=== PATIENT | male | born 1980 | race Two or more races ===

== ENCOUNTER 2016-05-18 21:37 | Inpatient (IN) | payer OTHER ==
[~2016-05-18] VITALS: Ht 167.6 cm; Wt 99.4 kg
[~2016-05-18 21:37] MED LIST: GLIP-115 PO
[2016-05-18 22:34] LABS: Basophils # (auto) 0 uL; Basophils % (auto) 0.2 % (0.0-2.0); Eosinophils # (auto) 0 uL; Eosinophils % (auto) 0.1 % (0.0-7.0); Hematocrit 39.4 % (41.0-53.0); Hemoglobin 12.7 g/dL (13.5-17.5); Lymphocytes # (auto) 1.5 uL; Lymphocytes % (auto) 18.7 % (10.0-50.0); Mean Corpuscular Hemoglobin 28.5 pg (28.0-32.0); Mean Corpuscular Hgb Conc. 32.3 g/dL (32.0-36.0); Mean Corpuscular Volume 88.3 fL (80.0-100.0); Mean Platelet Volume 7.5 fL (7.4-10.4); Monocytes # (auto) 0.4 uL; Monocytes % (auto) 5.1 % (0.0-12.0); Neutrophils # (auto) 6.1 uL; Neutrophils % (auto) 75.9 % (37.0-80.0); Platelet Count (auto) 334 10^3/uL (140-450); Red Cell Distribution Width 14.1 % (11.6-16.0); White Blood Cell 8.1 10^3/uL (4.4-10.8)
[2016-05-18 22:51] LABS: INR 0.98 (0.9-1.15); Partial Thromboplastin Time 22.5 sec (22.64-33.71); Prothrombin Time 10.1 sec (9.37-12.3)
[2016-05-18 22:54] LABS: Albumin 3.1 g/dL (3.4-5.0); Calcium 7.9 mg/dL (8.5-10.1); Potassium 4.5 mmol/L (3.5-5.1)
[2016-05-18 22:56] LABS: Urine Bilirubin Negative (Negative); Urine Blood Negative /uL (Negative); Urine Color Colorless (Yellow); Urine Ketone Negative (Negative); Urine Nitrite Negative (Negative); Urine RBC <1 /hpf (0 - 3); Urine Squamous Epithelial Cell FEW /hpf (<5); Urine Urobilinogen Normal (Negative); Urine pH 6.5 (5.0-8.0)
[2016-05-18 22:57] LABS: BUN/Creatinine Ratio 16.9; Bilirubin, Total 0.2 mg/dL (0.2-1.0); Total Protein 8.1 g/dL (6.4-8.2)
[2016-05-18] MEDS ORDERED: InsuLIN R (HUMAN) 100 UNITS in SODIUM CHL 0.9% 99 ML IV SCH (22:59)
[2016-05-18] MEDS ORDERED: SODIUM CHLORIDE 0.9% 1,000 ML IV ONE (23:00)
[2016-05-18] MEDS ORDERED: LEVOFLOXACIN 750MG 150 ML IV ONE (23:00)
[2016-05-18] MEDS ORDERED: DEXTROSE (50%) 50ML SYRG IV PRN (23:00)
[2016-05-18 23:02] LABS: Urine Glucose 4+ mg/dL (Normal)
[2016-05-18] MEDS ORDERED: SOD CHL 0.9%/ KCL 20MEQ 1,000 ML IV ONE (23:06)
[2016-05-18 23:36] LABS: Magnesium 2.4 mg/dL (1.6-2.6); Phosphorus 3.4 mg/dL (2.6-4.90)
[2016-05-18] MEDS: SOD CHL 0.9%/ KCL 20MEQ 1,000 ML IV SCH (23:36)
[2016-05-18] MEDS: SODIUM CHLORIDE 0.9% 1,000 ML IV SCH (23:44)
[2016-05-18] MEDS: ACCU-CHEK COMFORT CURVE STRIP VI SCH (23:50)
[2016-05-19] MEDS: ACCU-CHEK COMFORT CURVE STRIP VI SCH ×12 (01:07→11:59)
[2016-05-19] MEDS ORDERED: SODIUM CHLORIDE 0.9% 1,000 ML IV SCH (02:59)
[2016-05-19] MEDS ORDERED: HYDROcodone-ACET 5/325MG TAB PO PRN (05:15)
[2016-05-19] MEDS ORDERED: TEMAZEPAM 15 MG CAP PO PRN (05:15)
[2016-05-19] MEDS ORDERED: NITROGLYCERIN 0.4 MG SL TAB SL PRN (05:15)
[2016-05-19] MEDS ORDERED: MORPHINE SULF INJ 2 MG/ML SYRINGE 1ML IV PRN (05:15)
[2016-05-19] MEDS ORDERED: ONDANSETRON HCL 4 MG/2 ML VIAL IV PRN (05:15)
[2016-05-19] MEDS ORDERED: ACETAMINOPHEN 325 MG TAB PO PRN (05:15)
[2016-05-19 06:30] VITALS: BP 137/98
[2016-05-19 06:30] LABS: Calcium 7.3 mg/dL (8.5-10.1); Potassium 4.3 mmol/L (3.5-5.1)
[2016-05-19] MEDS: SOD CHL 0.9%/ KCL 20MEQ 1,000 ML IV SCH ×2 (06:48→12:19)
[2016-05-19] MEDS: SODIUM CHLORIDE 0.9% 1,000 ML IV SCH ×3 (06:56→11:42)
[2016-05-19 07:08] LABS: BUN/Creatinine Ratio 20.5
[2016-05-19 08:00] VITALS: BP 143/84
[2016-05-19] MEDS ORDERED: FLUCONAZOLE 100 MG TAB PO SCH (10:00)
[2016-05-19] MEDS ORDERED: TRIUMEQ PO SCH (10:00)
[2016-05-19] MEDS ORDERED: PREZCOBIX PO SCH ×2 (10:00)
[2016-05-19] MEDS ORDERED: LEVETIRACETAM 500 MG TAB PO SCH (10:00)
[2016-05-19] MEDS ORDERED: predniSONE 20 MG TAB PO SCH (10:00)
[2016-05-19] MEDS ORDERED: FAMOTIDINE 20 MG TAB PO SCH (10:00)
[2016-05-19] MEDS ORDERED: SULFAMETHOX W/TRIMETH(800/160MG) DS TAB PO SCH (10:00)
[2016-05-19] MEDS ORDERED: DEXTROSE (50%) 50ML SYRG IV PRN (11:15)
[2016-05-19 11:18] LABS: BUN/Creatinine Ratio 20.6
[2016-05-19] MEDS ORDERED: InsuLIN REG 1unit/0.01ml Soln (100units/ml) SC SCH ×2 (11:30→22:00)
[2016-05-19] MEDS ORDERED: ACCU-CHEK COMFORT CURVE STRIP VI SCH (11:30)
[2016-05-19 12:00] VITALS: BP 146/86
[2016-05-19] MEDS ORDERED: InsuLIN REG 1unit/0.01ml Soln (100units/ml) SC ONE (12:45)
== END 2016-05-19 13:25 | disposition left against medical advice (07) | DRG 637 ==
LOC: ER 21:37 → EDBD 21:37 → TELE 21:38 → DOU IN ICU 05-19 06:20
PROVIDERS: ADMIT Nurse Practitioner; ATTEND Family Medicine
DX: E10.10 Type 1 diabetes mellitus with ketoacidosis without coma (principal); N17.0 Acute kidney failure with tubular necrosis; E87.1 Hypo-osmolality and hyponatremia; J44.0 Chronic obstructive pulmonary disease with (acute) lower respiratory infection; E86.0 Dehydration; J45.909 Unspecified asthma, uncomplicated; R63.4 Abnormal weight loss; J20.9 Acute bronchitis, unspecified; Z82.49 Family history of ischemic heart disease and other diseases of the circulatory system; Z83.3 Family history of diabetes mellitus; Z86.73 Personal history of transient ischemic attack (TIA), and cerebral infarction without residual deficits; Z90.49 Acquired absence of other specified parts of digestive tract; Z98.890 Other specified postprocedural states; Z83.79 Family history of other diseases of the digestive system; Z83.2 Family history of diseases of the blood and blood-forming organs and certain disorders involving the immune mechanism; Z80.9 Family history of malignant neoplasm, unspecified; Z68.35 Body mass index [BMI] 35.0-35.9, adult
CPT/HCPCS: 36415; 36600; 71010; 80048; 80053; 81001; 82010; 82805; 82962; 83690; 83735; 83930; 84100; 85025; 85049; 85610; 85730; 87040; 87081; 94761; 96365; 96366; 96368; J1815; J1956

== ENCOUNTER 2017-01-13 16:37 | Emergency (ER) | payer OTHER ==
[~2017-01-13] VITALS: Ht 167.6 cm; Wt 113.4 kg
[2017-01-13 17:10] LABS: Basophils # (auto) 0 uL; Basophils % (auto) 0.9 % (0.0-2.0); Eosinophils # (auto) 0.1 uL; Eosinophils % (auto) 2.3 % (0.0-7.0); Hematocrit 45.1 % (41.0-53.0); Hemoglobin 15.3 g/dL (13.5-17.5); Lymphocytes # (auto) 1.7 uL; Lymphocytes % (auto) 42.3 % (10.0-50.0); Mean Corpuscular Hemoglobin 28.2 pg (28.0-32.0); Mean Corpuscular Hgb Conc. 33.8 g/dL (32.0-36.0); Mean Corpuscular Volume 83.2 fL (80.0-100.0); Mean Platelet Volume 7.6 fL (6.9-10.8); Monocytes # (auto) 0.6 uL; Monocytes % (auto) 16.3 % (0.0-12.0); Neutrophils # (auto) 1.5 uL; Neutrophils % (auto) 38.2 % (37.0-80.0); Nucleated Red Blood Cells % 0.4 %; Platelet Count (auto) 148 10^3/uL (140-450); Red Cell Distribution Width 13.3 % (11.8-14.3); White Blood Cell 3.9 10^3/uL (4.4-10.8)
[2017-01-13 17:30] LABS: Albumin 3.7 g/dL (3.4-5.0); Alkaline Phosphatase 117 U/L (45-117); Amylase 28 U/L (25-115); Anion Gap 12 (5-15); Aspartate Aminotransferase 40 U/L (15-37); BUN/Creatinine Ratio 12.3; Bilirubin, Total 0.6 mg/dL (0.2-1.0); Blood Urea Nitrogen 13 mg/dL (7-18); Calcium 8.2 mg/dL (8.5-10.1); Carbon Dioxide 21 mmol/L (21-32); Chloride 97 mmol/L (98-107); GFR African American 102 mL/min; GFR Non-African American 84 mL/min; Glucose 309 mg/dL (74-106); Magnesium 2.3 mg/dL (1.6-2.6); Potassium 4.1 mmol/L (3.5-5.1); Sodium 130 mmol/L (136-145); Total Protein 9.1 g/dL (6.4-8.2)
[2017-01-13 17:42] LABS: Urine Blood Negative /uL (Negative); Urine Color Yellow (Yellow); Urine Glucose 4+ mg/dL (Normal); Urine Hyaline Cast FEW /lpf (0 - 2); Urine Ketone 3+ (Negative); Urine Mucus FEW (None Seen); Urine Nitrite Negative (Negative); Urine RBC 1 /hpf (0 - 3); Urine Squamous Epithelial Cell FEW /hpf (<5)
[2017-01-13 18:49] LABS: Urine Bilirubin NEGATIVE (Negative)
[2017-01-13] MEDS ORDERED: SODIUM CHLORIDE 0.9% 1,000 ML IV ONE (19:30)
[2017-01-13] MEDS ORDERED: InsuLIN REG 1unit/0.01ml Soln (100units/ml) IV ONE (19:30)
[2017-01-13] MEDS ORDERED: MORPHINE SULF INJ 2 MG/ML SYRINGE 1ML IV ONE (20:30)
[2017-01-13 21:30] VITALS: BP 124/67
[2017-01-13] MEDS ORDERED: InsuLIN REG 1unit/0.01ml Soln (100units/ml) SC ONE ×2 (22:00→22:15)
[2017-01-13] MEDS ORDERED: METOCLOPRAMIDE HCL 10 MG TAB PO PRN (22:00)
[2017-01-13] MEDS ORDERED: InsuLIN REG 1unit/0.01ml Soln (100units/ml) ONE (22:15)
== END 2017-01-13 23:09 | disposition home or self-care (01) ==
LOC: ER 16:39
DX: E11.43 Type 2 diabetes mellitus with diabetic autonomic (poly)neuropathy (principal); K31.84 Gastroparesis; E11.65 Type 2 diabetes mellitus with hyperglycemia; J44.9 Chronic obstructive pulmonary disease, unspecified; Z86.73 Personal history of transient ischemic attack (TIA), and cerebral infarction without residual deficits; Z90.49 Acquired absence of other specified parts of digestive tract; Z79.899 Other long term (current) drug therapy
CPT/HCPCS: 36415; 71020; 80053; 81001; 82150; 82962; 83036; 83735; 84484; 85025; 93005; 96361; 96372; 96374; 96375; 99285; J1815; J2270

== ENCOUNTER 2017-04-10 09:56 | Emergency (ER) | payer OTHER ==
[~2017-04-10] VITALS: Ht 167.6 cm; Wt 108.9 kg
[2017-04-10 10:37] VITALS: BP 137/86
== END 2017-04-10 13:55 | disposition left against medical advice (07) ==
LOC: ER 09:56
DX: R05 Cough (principal); N50.819 Testicular pain, unspecified; Z53.21 Procedure and treatment not carried out due to patient leaving prior to being seen by health care provider

== ENCOUNTER 2017-08-06 11:49 | Emergency (ER) | payer OTHER ==
[~2017-08-06] VITALS: Ht 170.2 cm; Wt 113.4 kg
[2017-08-06 12:02] VITALS: BP 163/113
== END 2017-08-06 15:13 | disposition left against medical advice (07) ==
LOC: EDUNIT# 11:49 → EDBD 11:49 → ER 11:53
DX: E11.65 Type 2 diabetes mellitus with hyperglycemia (principal); J45.909 Unspecified asthma, uncomplicated; I10 Essential (primary) hypertension; Z86.73 Personal history of transient ischemic attack (TIA), and cerebral infarction without residual deficits; Z21 Asymptomatic human immunodeficiency virus [HIV] infection status
CPT/HCPCS: 93005

== ENCOUNTER 2017-10-17 10:30 | Emergency (ER) | payer OTHER ==
[~2017-10-17] VITALS: Ht 177.8 cm; Wt 95.3 kg
[2017-10-17 10:35] VITALS: BP 128/96
[2017-10-17] MEDS ORDERED: SODIUM CHLORIDE 0.9% 1,000 ML IV ONE ×2 (10:40)
[2017-10-17] MEDS ORDERED: InsuLIN REG 1unit/0.01ml Soln (100units/ml) IV ONE (10:45)
== END 2017-10-17 17:38 | disposition home or self-care (01) ==
LOC: EDBD 10:30 → ER 10:30
DX: E11.69 Type 2 diabetes mellitus with other specified complication (principal); I10 Essential (primary) hypertension; Z86.73 Personal history of transient ischemic attack (TIA), and cerebral infarction without residual deficits

== ENCOUNTER 2017-12-16 23:22 | Inpatient (IN) | payer OTHER ==
[~2017-12-16] VITALS: Ht 167.6 cm; Wt 112.6 kg
[2017-12-17] MEDS ORDERED: ACETAMINOPHEN 325 MG TAB PO ONE
[2017-12-17] MEDS ORDERED: ONDANSETRON HCL 4 MG/2 ML VIAL IV ONE (00:30)
[2017-12-17] MEDS ORDERED: PANTOPRAZOLE 40 MG/10 ML VIAL IV ONE (00:30)
[2017-12-17] MEDS ORDERED: ALUM & MAG HYDROX-SIMETH LIQ(MAALOX) 30 ML PO ONE (00:30)
[2017-12-17] MEDS ORDERED: KETOROLAC TROMETH 30 MG/ML 1ML VIAL IV ONE (00:30)
[2017-12-17 00:36] LABS: Basophils # (auto) 0 uL; Basophils % (auto) 0.5 % (0.0-2.0); Eosinophils # (auto) 0 uL; Eosinophils % (auto) 0.2 % (0.0-7.0); Hematocrit 39.7 % (41.0-53.0); Hemoglobin 13.4 g/dL (13.5-17.5); Lymphocytes # (auto) 0.9 uL; Mean Corpuscular Hemoglobin 28.7 pg (28.0-32.0); Mean Corpuscular Hgb Conc. 33.8 g/dL (32.0-36.0); Mean Corpuscular Volume 84.9 fL (80.0-100.0); Monocytes # (auto) 0.4 uL; Monocytes % (auto) 4.3 % (0.0-12.0); Neutrophils # (auto) 7.1 uL; Nucleated Red Blood Cells % 0.1 %; Platelet Count (auto) 219 10^3/uL (140-450); Red Blood Cells 4.67 10^6/uL (4.5-5.90); Red Cell Distribution Width 14.3 % (11.8-14.3); White Blood Cell 8.5 10^3/uL (4.4-10.8)
[2017-12-17 00:51] LABS: Albumin 2.8 g/dL (3.4-5.0); Amylase 79 U/L (25-115); Anion Gap 15 (5-15); Blood Urea Nitrogen 32 mg/dL (7-18); Calcium 7.8 mg/dL (8.5-10.1); Carbon Dioxide 18 mmol/L (21-32); Chloride 90 mmol/L (98-107); Lipase 305 U/L (73-393); Potassium 4.6 mmol/L (3.5-5.1); Sodium 123 mmol/L (136-145)
[2017-12-17 00:55] LABS: Alanine Aminotransferase 38 U/L (16-61); Aspartate Aminotransferase 45 U/L (15-37); BUN/Creatinine Ratio 14.5; Bilirubin, Total 0.4 mg/dL (0.2-1.0); GFR African American 44 mL/min; GFR Non-African American 36 mL/min; Total Protein 8.7 g/dL (6.4-8.2)
[2017-12-17 00:57] LABS: Glucose 560 mg/dL (74-106)
[2017-12-17 00:59] LABS: Alkaline Phosphatase 81 U/L (45-117)
[2017-12-17] MEDS ORDERED: IOHEXOL 350 MG/ML 100ML IJ ONE (01:06)
[2017-12-17] MEDS ORDERED: InsuLIN REG 1unit/0.01ml Soln (100units/ml) IV ONE ×3 (02:00→04:30)
[2017-12-17] MEDS ORDERED: SODIUM CHLORIDE 0.9% 1,000 ML IV ONE ×2 (02:00→05:30)
[2017-12-17] MEDS ORDERED: DEXTROSE (50%) 50ML SYRG IV PRN (05:30)
[2017-12-17] MEDS ORDERED: NITROGLYCERIN 0.4 MG SL TAB SL PRN (05:30)
[2017-12-17] MEDS ORDERED: MORPHINE SULF INJ 2 MG/ML SYRINGE 1ML IV PRN (05:30)
[2017-12-17] MEDS ORDERED: HYDROcodone-ACET 5/325MG TAB PO PRN (05:30)
[2017-12-17] MEDS ORDERED: ONDANSETRON HCL 4 MG/2 ML VIAL IV PRN (05:30)
[2017-12-17] MEDS ORDERED: TEMAZEPAM 15 MG CAP PO PRN (05:30)
[2017-12-17] MEDS ORDERED: ACETAMINOPHEN 325 MG TAB PO PRN (05:30)
[2017-12-17] MEDS: SODIUM CHLORIDE 0.9% 1,000 ML IV SCH ×2 (06:33→15:34)
[2017-12-17] MEDS ORDERED: cefTRIAXone 1GM/10ml IVPUSH 10 ML IV ONE (07:00)
[2017-12-17] MEDS: InsuLIN REG 1unit/0.01ml Soln (100units/ml) SC SCH ×4 (08:00→20:19)
[2017-12-17] MEDS: ACCU-CHEK COMFORT CURVE STRIP VI SCH ×4 (08:12→20:28)
[2017-12-17] MEDS: SULFAMETH-TRIMETH 80/16MG-ML 15 ML in D5W 5% 500 ML IV SCH ×2 (08:55→17:24)
[2017-12-17] MEDS ORDERED: PANTOPRAZOLE 40 MG/10 ML VIAL IV SCH (10:00)
[2017-12-17] MEDS ORDERED: ENOXAPARIN SOD 40 MG/0.4 ML SYRINGE SC SCH (10:00)
[2017-12-17] MEDS ORDERED: LEVOFLOXACIN 500MG 100 ML IV SCH (10:00)
[2017-12-17 12:47] LABS: Urine Bacteria NONE SEEN /hpf (None Seen); Urine Blood 1+ /uL (Negative); Urine WBC 6 /hpf (0 - 3)
[2017-12-17 17:00] VITALS: BP 104/60
[2017-12-17 22:00] VITALS: BP 105/71
[2017-12-17] MEDS ORDERED: INSULIN LANTUS (GLARGINE) 1 /0.01ml (100units/ml) SC SCH (22:00)
[2017-12-18] MEDS: ACCU-CHEK COMFORT CURVE STRIP VI SCH ×2 (00:12→04:00)
[2017-12-18] MEDS: InsuLIN REG 1unit/0.01ml Soln (100units/ml) SC SCH ×2 (00:12→04:00)
[2017-12-18] MEDS: SULFAMETH-TRIMETH 80/16MG-ML 15 ML in D5W 5% 500 ML IV SCH (00:27)
[2017-12-18] MEDS: SODIUM CHLORIDE 0.9% 1,000 ML IV SCH (01:30)
[2017-12-18 05:00] VITALS: BP 100/25
[2017-12-18 06:13] LABS: Albumin 2.2 g/dL (3.4-5.0); BUN/Creatinine Ratio 22.2; Bilirubin, Total 0.2 mg/dL (0.2-1.0); Calcium 7.4 mg/dL (8.5-10.1); Potassium 3.8 mmol/L (3.5-5.1); Total Protein 7.8 g/dL (6.4-8.2)
[2017-12-18 08:00] VITALS: BP 118/70
[2017-12-18] MEDS ORDERED: cefTRIAXone 1GM/10ml IVPUSH 10 ML IV SCH (09:00)
== END 2017-12-18 08:00 | disposition left against medical advice (07) | DRG 682 ==
LOC: EDBD 23:22 → ER 23:22 → TELE 23:23 → TELE-WESTW 12-17 16:36
PROVIDERS: ADMIT Nurse Practitioner; ATTEND Nurse Practitioner
DX: N17.0 Acute kidney failure with tubular necrosis (principal); J18.9 Pneumonia, unspecified organism; E11.22 Type 2 diabetes mellitus with diabetic chronic kidney disease; N18.3 Chronic kidney disease, stage 3 (moderate); E86.0 Dehydration; G47.30 Sleep apnea, unspecified; I12.9 Hypertensive chronic kidney disease with stage 1 through stage 4 chronic kidney disease, or unspecified chronic kidney disease; J45.909 Unspecified asthma, uncomplicated; K40.20 Bilateral inguinal hernia, without obstruction or gangrene, not specified as recurrent; Z82.0 Family history of epilepsy and other diseases of the nervous system; Z82.49 Family history of ischemic heart disease and other diseases of the circulatory system; Z83.3 Family history of diabetes mellitus; Z86.73 Personal history of transient ischemic attack (TIA), and cerebral infarction without residual deficits
CPT/HCPCS: 36415; 36600; 71045; 74177; 80053; 81001; 82010; 82150; 82805; 82962; 83036; 83605; 83690; 84484; 85025; 87040; 93005; 96361; 96372; 96374; 96375; 96376; 99291; C9113; J0696; J1815; J1885; J1956; J2405; J3490

== ENCOUNTER 2019-04-27 16:56 | Emergency (ER) | payer OTHER ==
[~2019-04-27] VITALS: Ht 167.6 cm; Wt 127.0 kg
[~2019-04-27 16:56] MED LIST changes: -GLIP-115 PO; +GLIP5TAB12 PO
[2019-04-27 17:21] VITALS: BP 144/99
[2019-04-27] MEDS ORDERED: TETRACAINE HCL 0.5% OPTH(EYE) SOLN 4ML EACHEYE ONE (18:00)
[2019-04-27] MEDS ORDERED: FLUORESCEIN SOD 1 MG TEST STRIP OP ONE (18:00)
== END 2019-04-27 18:12 | disposition home or self-care (01) ==
LOC: ER 16:56
DX: S05.01XA Injury of conjunctiva and corneal abrasion without foreign body, right eye, initial encounter (principal); E11.9 Type 2 diabetes mellitus without complications; I10 Essential (primary) hypertension; J45.909 Unspecified asthma, uncomplicated; Z86.73 Personal history of transient ischemic attack (TIA), and cerebral infarction without residual deficits; X58.XXXA Exposure to other specified factors, initial encounter; Y93.89 Activity, other specified; Y92.89 Other specified places as the place of occurrence of the external cause; Y99.8 Other external cause status

== ENCOUNTER 2019-05-10 08:50 | Emergency (ER) | payer OTHER ==
[~2019-05-10] VITALS: Ht 167.6 cm; Wt 127.0 kg
[2019-05-10 09:18] VITALS: BP 159/100
[2019-05-10] MEDS: IPRATROPIUM BROM 0.5 MG/2.5ML INH SOL NEB ONE (10:08)
[2019-05-10] MEDS: ALBUTEROL SULF 2.5 MG/0.5ML(0.5%) NEB SOLN NEB ONE (10:08)
[2019-05-10] MEDS: cefTRIAXone SOD 1,000 MG VL IM ONE (10:10)
== END 2019-05-10 10:33 | disposition home or self-care (01) ==
LOC: ER 08:50
DX: J03.90 Acute tonsillitis, unspecified (principal); J45.909 Unspecified asthma, uncomplicated; E11.9 Type 2 diabetes mellitus without complications; I10 Essential (primary) hypertension
CPT/HCPCS: 71046; 94640; 96372; 99283; J0696; J7611; J7644

== ENCOUNTER 2019-10-12 19:03 | Emergency (ER) | payer OTHER ==
[~2019-10-12] VITALS: Ht 167.6 cm; Wt 123.4 kg
[2019-10-12] MEDS ORDERED: cloNIDine HCL 0.1 MG TAB PO ONE (19:30)
[2019-10-12] MEDS ORDERED: HYDROcodone-ACET 10/325MG TAB PO ONE (19:30)
[2019-10-12 19:48] LABS: Basophils # (auto) 0.1 10 ^3/uL (0-0.2); Basophils % (auto) 0.9 % (0.0-2.0); Eosinophils # (auto) 0.2 10 ^3/uL (0-0.8); Eosinophils % (auto) 2.7 % (0.0-7.0); Hematocrit 46.4 % (41.0-53.0); Hemoglobin 15.6 g/dL (13.5-17.5); Lymphocytes # (auto) 1.8 10 ^3/uL (0.4-5.4); Lymphocytes % (auto) 27.8 % (10.0-50.0); Mean Corpuscular Hgb Conc. 33.6 g/dL (32.0-36.0); Mean Corpuscular Volume 86.3 fL (80.0-100.0); Monocytes # (auto) 0.4 10 ^3/uL (0-1.3); Monocytes % (auto) 6.3 % (0.0-12.0); Neutrophils # (auto) 4.1 10 ^3/uL (1.6-8.6); Neutrophils % (auto) 62.3 % (37.0-80.0); Platelet Count (auto) 279 10^3/uL (140-450); Red Blood Cells 5.38 10^6/uL (4.5-5.90); Red Cell Distribution Width 13.5 % (11.8-14.3); White Blood Cell 6.5 10^3/uL (4.4-10.8)
[2019-10-12 20:06] LABS: Urine WBC None Seen /hpf (0 - 3)
[2019-10-12 20:07] LABS: Albumin 2.9 g/dL (3.4-5.0); Calcium 8.5 mg/dL (8.5-10.1); Potassium 4.1 mmol/L (3.5-5.1)
[2019-10-12 20:09] LABS: Bilirubin, Total 0.5 mg/dL (0.2-1.0)
[2019-10-12 20:17] LABS: BUN/Creatinine Ratio 10.1
[2019-10-12 20:26] LABS: Urine Bacteria NONE SEEN /hpf (None Seen); Urine Blood Negative /uL (Negative); Urine Specific Gravity 1.029 (1.001-1.035)
[2019-10-12] MEDS ORDERED: SODIUM CHLORIDE 0.9% 1,000 ML IV ONE (20:45)
[2019-10-12] MEDS ORDERED: MORPHINE SULFATE 4 MG/ML SYR/VIAL IV ONE (20:45)
[2019-10-12] MEDS ORDERED: SODIUM CHLORIDE 0.9% 3,000 ML IV ONE (20:45)
[2019-10-12] MEDS ORDERED: InsuLIN REG 1unit/0.01ml Soln (100units/ml) IV ONE ×2 (20:45)
[2019-10-12] MEDS ORDERED: ONDANSETRON HCL 4 MG/2 ML VIAL IV ONE (20:45)
[2019-10-12 20:58] LABS: Magnesium 2.2 mg/dL (1.6-2.6)
[2019-10-13] MEDS ORDERED: InsuLIN REG 1unit/0.01ml Soln (100units/ml) IV ONE (00:15)
[2019-10-13 01:30] VITALS: BP 132/81
== END 2019-10-13 01:51 | disposition home or self-care (01) ==
LOC: ER 19:04
DX: H10.32 Unspecified acute conjunctivitis, left eye (principal); E11.65 Type 2 diabetes mellitus with hyperglycemia; I10 Essential (primary) hypertension
CPT/HCPCS: 36415; 70486; 80053; 81001; 82010; 82962; 83735; 83880; 84484; 85025; 96361; 96374; 96375; 96376; 99285; J1815; J2270; J2405; J7030

== ENCOUNTER 2020-03-06 10:10 | Emergency (ER) | payer OTHER ==
[~2020-03-06] VITALS: Ht 167.6 cm; Wt 117.9 kg
[2020-03-06 10:55] LABS: Anion Gap 3 (5-15); Basophils # (auto) 0 10 ^3/uL (0-0.2); Basophils % (auto) 0.6 % (0.0-2.0); Blood Urea Nitrogen 14 mg/dL (7-18); Calcium 8.5 mg/dL (8.5-10.1); Carbon Dioxide 24 mmol/L (21-32); Chloride 109 mmol/L (98-107); Eosinophils # (auto) 0.1 10 ^3/uL (0-0.8); Glucose 181 mg/dL (74-106); Hematocrit 41.1 % (41.0-53.0); Hemoglobin 14.4 g/dL (13.5-17.5); Lymphocytes # (auto) 0.7 10 ^3/uL (0.4-5.4); Lymphocytes % (auto) 14.1 % (10.0-50.0); Magnesium 1.9 mg/dL (1.6-2.6); Mean Corpuscular Hemoglobin 28.5 pg (28.0-32.0); Mean Corpuscular Hgb Conc. 35.2 g/dL (32.0-36.0); Mean Corpuscular Volume 81.1 fL (80.0-100.0); Monocytes # (auto) 0.4 10 ^3/uL (0-1.3); Monocytes % (auto) 9.3 % (0.0-12.0); Neutrophils # (auto) 3.5 10 ^3/uL (1.6-8.6); Nucleated Red Blood Cells % 0.1 %; Platelet Count (auto) 330 10^3/uL (140-450); Potassium 3.7 mmol/L (3.5-5.1); Red Blood Cells 5.07 10^6/uL (4.5-5.90); Red Cell Distribution Width 12.8 % (11.8-14.3); Sodium 136 mmol/L (136-145); White Blood Cell 4.7 10^3/uL (4.4-10.8)
[2020-03-06 11:00] LABS: Alanine Aminotransferase 28 U/L (16-61); Alkaline Phosphatase 137 U/L (45-117); Aspartate Aminotransferase 18 U/L (15-37); BUN/Creatinine Ratio 15.9; Bilirubin, Total 0.4 mg/dL (0.2-1.0); GFR African American 124 mL/min; GFR Non-African American 102 mL/min; Total Protein 8.2 g/dL (6.4-8.2)
[2020-03-06] MEDS ORDERED: ASPirin 81 mg TAB PO ONE (12:00)
[2020-03-06 14:08] VITALS: BP 127/79
[2020-03-06] MEDS ORDERED: HYDROcodone-ACET 10/325MG TAB PO ONE (14:15)
== END 2020-03-06 14:35 | disposition home or self-care (01) ==
LOC: ER 10:10
DX: R07.89 Other chest pain (principal); E44.1 Mild protein-calorie malnutrition; E11.9 Type 2 diabetes mellitus without complications; I10 Essential (primary) hypertension; Z68.41 Body mass index [BMI] 40.0-44.9, adult
CPT/HCPCS: 36415; 71046; 72125; 80053; 83735; 84484; 85025; 93005

== ENCOUNTER 2021-01-14 05:52 | Emergency (ER) | payer OTHER ==
[~2021-01-14] VITALS: Ht 167.6 cm; Wt 92.1 kg
[2021-01-14 06:30] VITALS: BP 158/98
== END 2021-01-14 06:59 | disposition home or self-care (01) ==
LOC: ER 05:52
DX: S16.1XXA Strain of muscle, fascia and tendon at neck level, initial encounter (principal); I10 Essential (primary) hypertension; Z79.899 Other long term (current) drug therapy; V43.62XA Car passenger injured in collision with other type car in traffic accident, initial encounter; Y93.89 Activity, other specified; Y92.410 Unspecified street and highway as the place of occurrence of the external cause; Y99.8 Other external cause status
CPT/HCPCS: 72040

== ENCOUNTER → 2021-11-06 | Emergency (ER) | payer OTHER ==
[~2021-11-06] VITALS: Ht 167.6 cm; Wt 86.2 kg
[~2021-11-06] MED LIST changes: +EPINEPHrine HCL 1 MG/1 ML AMP SC ONE; +HYDR25CA PO; +METH4PAK PO
[2021-11-06 17:24] VITALS: BP 129/83
== END | disposition home or self-care (01) ==
LOC: ER 17:03
DX: T78.40XA Allergy, unspecified, initial encounter (principal); I10 Essential (primary) hypertension; Z86.73 Personal history of transient ischemic attack (TIA), and cerebral infarction without residual deficits; X58.XXXA Exposure to other specified factors, initial encounter
CPT/HCPCS: 96372; 99283; J0171

== ENCOUNTER 2021-11-29 00:54 | Emergency (ER) | payer OTHER ==
[~2021-11-29] VITALS: Ht 167.6 cm; Wt 86.6 kg
[~2021-11-29 00:54] MED LIST changes: -EPINEPHrine HCL 1 MG/1 ML AMP SC ONE
[2021-11-29 03:08] LABS: Urine Bacteria NONE SEEN /hpf (None Seen); Urine Blood Negative /uL (Negative); Urine Specific Gravity 1.014 (1.001-1.035); Urine WBC <1 /hpf (0 - 3)
[2021-11-29] MEDS ORDERED: CEPH-509 PO (09:24)
[2021-11-29] MEDS ORDERED: CLIN300C8 PO (09:24)
[2021-11-29 09:46] VITALS: BP 106/67
== END 2021-11-29 09:48 | disposition home or self-care (01) ==
LOC: ER 00:54
DX: N45.3 Epididymo-orchitis (principal); I10 Essential (primary) hypertension; Z86.73 Personal history of transient ischemic attack (TIA), and cerebral infarction without residual deficits; Z79.899 Other long term (current) drug therapy
CPT/HCPCS: 76870; 81001

== ENCOUNTER 2022-01-26 04:35 | Emergency (ER) | payer OTHER ==
[~2022-01-26] VITALS: Ht 167.6 cm; Wt 83.5 kg
[~2022-01-26 04:35] MED LIST changes: +CEPH-509 PO; +CLIN300C8 PO
[2022-01-26 06:13] LABS: Basophils # (auto) 0 10 ^3/uL (0-0.2); Basophils % (auto) 1.2 % (0.0-2.0); Eosinophils # (auto) 0.3 10 ^3/uL (0-0.8); Eosinophils % (auto) 9.2 % (0.0-7.0); Hematocrit 33.3 % (41.0-53.0); Hemoglobin 11.2 g/dL (13.5-17.5); Lymphocytes % (auto) 29.5 % (10.0-50.0); Mean Corpuscular Hemoglobin 29.6 pg (28.0-32.0); Mean Corpuscular Hgb Conc. 33.6 g/dL (32.0-36.0); Mean Corpuscular Volume 88.2 fL (80.0-100.0); Monocytes # (auto) 0.4 10 ^3/uL (0-1.3); Neutrophils # (auto) 1.7 10 ^3/uL (1.6-8.6); Neutrophils % (auto) 49.1 % (37.0-80.0); Nucleated Red Blood Cells % 0.1 %; Red Blood Cells 3.77 10^6/uL (4.5-5.90); Red Cell Distribution Width 15.2 % (11.8-14.3); White Blood Cell 3.5 10^3/uL (4.4-10.8)
[2022-01-26 06:29] LABS: Albumin 3.2 g/dL (3.4-5.0); BUN/Creatinine Ratio 21.2; Calcium 8.4 mg/dL (8.5-10.1); Potassium 4.6 mmol/L (3.5-5.1)
[2022-01-26 06:30] LABS: Urine Bacteria NONE SEEN /hpf (None Seen); Urine Blood Negative /uL (Negative); Urine Specific Gravity 1.022 (1.001-1.035); Urine WBC 1 /hpf (0 - 3)
[2022-01-26 06:32] LABS: Bilirubin, Total 0.3 mg/dL (0.2-1.0); Total Protein 7.6 g/dL (6.4-8.2)
[2022-01-26 06:56] LABS: Amphetamine Screen, Urine NEGATIVE (NEGATIVE); Barbiturate Scree,Urine NEGATIVE (NEGATIVE); Benzodiazephine Screen, Urine NEGATIVE (NEGATIVE); Cannabinoid Screen, Urine NEGATIVE (NEGATIVE); Cocaine Screen, Urine NEGATIVE (NEGATIVE); Opiate Scree,Urine NEGATIVE (NEGATIVE); Phencyclidine Screen, Urine NEGATIVE (NEGATIVE)
[2022-01-26 12:43] VITALS: BP 124/80
== END 2022-01-26 12:45 | disposition home or self-care (01) ==
LOC: ER 04:35
DX: R10.13 Epigastric pain (principal); I10 Essential (primary) hypertension; Z86.73 Personal history of transient ischemic attack (TIA), and cerebral infarction without residual deficits
CPT/HCPCS: 36415; 74176; 80053; 80307; 81001; 83690; 85025

== ENCOUNTER 2022-03-16 14:31 | Emergency (ER) | payer OTHER ==
[~2022-03-16] VITALS: Ht 167.6 cm; Wt 79.3 kg
[2022-03-16 17:02] VITALS: BP 130/82
[2022-03-16] MEDS ORDERED: MONT5CHW23 PO (17:19)
[2022-03-16] MEDS ORDERED: IBUP800T26 PO ×2 (17:19→17:30)
[2022-03-16] MEDS ORDERED: AZITTAB PO ×2 (17:19→17:30)
[2022-03-16] MEDS ORDERED: PROM1SOL4 PO ×2 (17:19→17:30)
== END 2022-03-16 17:26 | disposition home or self-care (01) ==
LOC: ER 14:31
DX: J20.9 Acute bronchitis, unspecified (principal); R50.9 Fever, unspecified; I10 Essential (primary) hypertension; Z86.73 Personal history of transient ischemic attack (TIA), and cerebral infarction without residual deficits

== ENCOUNTER 2022-08-18 15:26 | Emergency (ER) | payer OTHER ==
[~2022-08-18] VITALS: Ht 167.6 cm; Wt 88.0 kg
[~2022-08-18 15:26] MED LIST changes: +AZITTAB PO; +IBUP800T26 PO; +MONT5CHW23 PO; +PROM1SOL4 PO
[2022-08-18 17:33] VITALS: BP 160/94
[2022-08-18] MEDS ORDERED: ACET1CAP14 PO (18:14)
== END 2022-08-18 18:21 | disposition home or self-care (01) ==
LOC: ER 15:26
DX: S16.1XXA Strain of muscle, fascia and tendon at neck level, initial encounter (principal); I10 Essential (primary) hypertension; Z86.73 Personal history of transient ischemic attack (TIA), and cerebral infarction without residual deficits; V43.52XA Car driver injured in collision with other type car in traffic accident, initial encounter; Y93.89 Activity, other specified; Y92.89 Other specified places as the place of occurrence of the external cause; Y99.8 Other external cause status
CPT/HCPCS: 70450; 72125

== ENCOUNTER 2022-09-08 14:53 | Inpatient (IN) | payer OTHER ==
[~2022-09-08] VITALS: Ht 167.6 cm; Wt 92.5 kg
[~2022-09-08 14:53] MED LIST changes: +ACET1CAP14 PO
[2022-09-08] MEDS ORDERED: ACETAMINOPHEN 500 MG TAB PO ONE (16:00)
[2022-09-08 16:19] LABS: Basophils # (auto) 0.1 10 ^3/uL (0-0.2); Basophils % (auto) 0.7 % (0.0-2.0); Eosinophils # (auto) 0.2 10 ^3/uL (0-0.8); Eosinophils % (auto) 2.8 % (0.0-7.0); Hematocrit 34.4 % (41.0-53.0); Hemoglobin 11.6 g/dL (13.5-17.5); Lymphocytes # (auto) 1.1 10 ^3/uL (0.4-5.4); Lymphocytes % (auto) 13.4 % (10.0-50.0); Mean Corpuscular Hemoglobin 29.1 pg (28.0-32.0); Mean Corpuscular Hgb Conc. 33.6 g/dL (32.0-36.0); Mean Corpuscular Volume 86.4 fL (80.0-100.0); Monocytes # (auto) 0.8 10 ^3/uL (0-1.3); Monocytes % (auto) 9.2 % (0.0-12.0); Neutrophils # (auto) 6.2 10 ^3/uL (1.6-8.6); Neutrophils % (auto) 73.9 % (37.0-80.0); Nucleated Red Blood Cells % 0.2 %; Red Blood Cells 3.98 10^6/uL (4.5-5.90); Red Cell Distribution Width 13.9 % (11.8-14.3); White Blood Cell 8.3 10^3/uL (4.4-10.8)
[2022-09-08 16:31] LABS: Urine Bacteria NONE SEEN /hpf (None Seen); Urine Blood 1+ /uL (Negative); Urine Specific Gravity 1.015 (1.001-1.035); Urine WBC 2 /hpf (0 - 3)
[2022-09-08 16:39] LABS: Albumin 3.3 g/dL (3.4-5.0); Calcium 8.5 mg/dL (8.5-10.1); Potassium 3.9 mmol/L (3.5-5.1)
[2022-09-08 16:43] LABS: BUN/Creatinine Ratio 20.4 (10.0-20.0); Bilirubin, Total 0.8 mg/dL (0.2-1.0); Total Protein 7.8 g/dL (6.4-8.2)
[2022-09-08] MEDS ORDERED: ONDANSETRON HCL 4 MG/2 ML VIAL IM ONE (18:00)
[2022-09-08] MEDS ORDERED: SODIUM CHLORIDE 0.9% 1,000 ML IV ONE (19:15)
[2022-09-08] MEDS ORDERED: PIPERACILLIN-TAZO 4.5GM 100 ML IV ONE (19:15)
[2022-09-08] MEDS ORDERED: ONDANSETRON HCL 4 MG/2 ML VIAL IV ONE (19:15)
[2022-09-08] MEDS ORDERED: ONDANSETRON HCL 4 MG/2 ML VIAL IV PRN (19:45)
[2022-09-08] MEDS ORDERED: ACETAMINOPHEN 325 MG TAB PO PRN (19:45)
[2022-09-08] MEDS ORDERED: HYDROcodone-ACET 5/325MG TAB PO PRN (19:45)
[2022-09-08] MEDS: MORPHINE SULFATE INJ 2 MG/ml SYRG IV PRN (20:24)
[2022-09-08] MEDS ORDERED: LISI-275 PO (20:30)
[2022-09-08] MEDS ORDERED: ALBUTEROL SULF 2.5 MG/0.5ML(0.5%) NEB SOLN NEB PRN (20:30)
[2022-09-08] MEDS ORDERED: DEXTROSE (50%) 50ML SYRG IV PRN (20:30)
[2022-09-08] MEDS ORDERED: BICT1TAB PO (20:30)
[2022-09-08] MEDS ORDERED: IPRATROPIUM BROM 0.5 MG/2.5ML INH SOL NEB PRN (20:30)
[2022-09-08] MEDS ORDERED: hydrALAZINE HCL 20 MG/ML VL IV PRN (20:30)
[2022-09-08] MEDS ORDERED: ATOR40TA52 PO (20:30)
[2022-09-08 20:39] LABS: INR 0.99 (0.9-1.15); Partial Thromboplastin Time 28.8 sec (24.6-33.4)
[2022-09-08] MEDS: LACTATED RINGER'S 1,000 ML IV SCH (20:39)
[2022-09-08] MEDS: POTASSIUM CHL 20MEQ/100ML 100 ML IV SCH ×2 (20:41→23:20)
[2022-09-08 20:42] LABS: Cholesterol 123 mg/dL (< 200)
[2022-09-08 20:46] LABS: HDL Cholesterol 43 mg/dL (40-59); LDL Cholesterol 69 mg/dL (< 100); Triglycerides 109 mg/dL (< 150)
[2022-09-08] MEDS: PIPERACILLIN-TAZOB 3.375GM 100 ML IV SCH (23:16)
[2022-09-09] MEDS: ACCU-CHEK COMFORT CURVE STRIP VI SCH ×5 (00:09→23:38)
[2022-09-09] MEDS: MORPHINE SULFATE INJ 2 MG/ml SYRG IV PRN ×3 (00:47→21:20)
[2022-09-09 02:47] VITALS: BP 123/77
[2022-09-09] MEDS: LACTATED RINGER'S 1,000 ML IV SCH ×3 (03:49→19:45)
[2022-09-09 05:56] LABS: Basophils # (auto) 0 10 ^3/uL (0-0.2); Basophils % (auto) 0.6 % (0.0-2.0); Eosinophils # (auto) 0.2 10 ^3/uL (0-0.8); Eosinophils % (auto) 3.1 % (0.0-7.0); Hematocrit 30.2 % (41.0-53.0); Hemoglobin 10.3 g/dL (13.5-17.5); Lymphocytes % (auto) 14.5 % (10.0-50.0); Mean Corpuscular Hemoglobin 29.9 pg (28.0-32.0); Mean Corpuscular Hgb Conc. 34.2 g/dL (32.0-36.0); Mean Corpuscular Volume 87.3 fL (80.0-100.0); Monocytes # (auto) 0.7 10 ^3/uL (0-1.3); Monocytes % (auto) 10.3 % (0.0-12.0); Neutrophils # (auto) 5.1 10 ^3/uL (1.6-8.6); Neutrophils % (auto) 71.5 % (37.0-80.0); Red Blood Cells 3.46 10^6/uL (4.5-5.90); Red Cell Distribution Width 13.7 % (11.8-14.3); White Blood Cell 7.2 10^3/uL (4.4-10.8)
[2022-09-09] MEDS: InsuLIN REG 1unit/0.01ml Soln (100units/ml) SC SCH ×5 (06:00→23:38)
[2022-09-09 06:17] LABS: Albumin 2.7 g/dL (3.4-5.0); BUN/Creatinine Ratio 22.1 (10.0-20.0); Bilirubin, Total 0.7 mg/dL (0.2-1.0); Calcium 8.2 mg/dL (8.5-10.1); Total Protein 6.4 g/dL (6.4-8.2)
[2022-09-09] MEDS: PIPERACILLIN-TAZOB 3.375GM 100 ML IV SCH ×3 (06:20→21:20)
[2022-09-09 10:59] VITALS: BP 125/75
[2022-09-09] MEDS: PANTOPRAZOLE 40 MG/10 ML VIAL INJ IV SCH (11:03)
[2022-09-09 13:00] VITALS: BP 125/75
[2022-09-09 17:24] VITALS: BP 130/83
[2022-09-09 22:01] VITALS: BP 120/70
[2022-09-10] MEDS: LACTATED RINGER'S 1,000 ML IV SCH ×3 (03:45→19:45)
[2022-09-10] MEDS: PIPERACILLIN-TAZOB 3.375GM 100 ML IV SCH ×3 (05:30→22:22)
[2022-09-10 05:34] VITALS: BP 120/73
[2022-09-10] MEDS: InsuLIN REG 1unit/0.01ml Soln (100units/ml) SC SCH ×3 (05:34→17:59)
[2022-09-10] MEDS: ACCU-CHEK COMFORT CURVE STRIP VI SCH ×3 (05:34→17:59)
[2022-09-10 06:22] LABS: Basophils # (auto) 0 10 ^3/uL (0-0.2); Basophils % (auto) 0.7 % (0.0-2.0); Eosinophils # (auto) 0.3 10 ^3/uL (0-0.8); Eosinophils % (auto) 6.9 % (0.0-7.0); Hematocrit 28.4 % (41.0-53.0); Lymphocytes % (auto) 19.1 % (10.0-50.0); Mean Corpuscular Hemoglobin 30.2 pg (28.0-32.0); Mean Corpuscular Volume 86.1 fL (80.0-100.0); Monocytes # (auto) 0.6 10 ^3/uL (0-1.3); Monocytes % (auto) 11.5 % (0.0-12.0); Neutrophils # (auto) 3.1 10 ^3/uL (1.6-8.6); Neutrophils % (auto) 61.8 % (37.0-80.0); Red Cell Distribution Width 13.9 % (11.8-14.3)
[2022-09-10] MEDS: MORPHINE SULFATE INJ 2 MG/ml SYRG IV PRN ×2 (06:50→22:23)
[2022-09-10 07:09] LABS: Potassium 4.1 mmol/L (3.5-5.1)
[2022-09-10 07:17] LABS: BUN/Creatinine Ratio 14.3 (10.0-20.0); Calcium 7.9 mg/dL (8.5-10.1); Magnesium 1.9 mg/dL (1.6-2.6)
[2022-09-10 08:15] VITALS: BP 125/79
[2022-09-10 09:00] VITALS: BP 125/79
[2022-09-10] MEDS: PANTOPRAZOLE 40 MG/10 ML VIAL INJ IV SCH (09:32)
[2022-09-10 13:30] VITALS: BP 157/81
[2022-09-10 16:30] VITALS: BP 136/94
[2022-09-10 22:00] VITALS: BP 125/80
[2022-09-11] MEDS: ACCU-CHEK COMFORT CURVE STRIP VI SCH ×5 (00:26→23:48)
[2022-09-11] MEDS: LACTATED RINGER'S 1,000 ML IV SCH ×3 (03:45→19:45)
[2022-09-11 05:00] VITALS: BP 101/57
[2022-09-11] MEDS: PIPERACILLIN-TAZOB 3.375GM 100 ML IV SCH ×2 (05:18→16:26)
[2022-09-11] MEDS: InsuLIN REG 1unit/0.01ml Soln (100units/ml) SC SCH ×5 (05:27→23:51)
[2022-09-11 09:00] VITALS: BP 138/87
[2022-09-11] MEDS: PANTOPRAZOLE 40 MG/10 ML VIAL INJ IV SCH (10:17)
[2022-09-11 13:00] VITALS: BP 152/84
[2022-09-11] MEDS: MORPHINE SULFATE INJ 2 MG/ml SYRG IV PRN ×2 (16:27→22:40)
[2022-09-11 17:24] VITALS: BP_SYST 152; BP_SYST 174; BP_DIAS 101; BP_DIAS 89
[2022-09-11 22:00] VITALS: BP 125/69
[2022-09-11] MEDS ORDERED: LIDOCAINE 1% (LOCAL ANESTH.) PF 5ml SDV ID ONE (22:00)
[2022-09-11] MEDS: SODIUM CHLOR 0.9% PF (SALINE LOCK) 10ML VIAL/SYR IV SCH (22:07)
[2022-09-12] MEDS: PIPERACILLIN-TAZOB 3.375GM 100 ML IV SCH ×2 (01:37→10:22)
[2022-09-12] MEDS: LACTATED RINGER'S 1,000 ML IV SCH ×2 (03:45→11:37)
[2022-09-12 04:57] VITALS: BP 124/81
[2022-09-12] MEDS: ACCU-CHEK COMFORT CURVE STRIP VI SCH (06:38)
[2022-09-12] MEDS: InsuLIN REG 1unit/0.01ml Soln (100units/ml) SC SCH ×2 (06:38→11:38)
[2022-09-12 09:00] VITALS: BP 132/84
[2022-09-12] MEDS: PANTOPRAZOLE 40 MG/10 ML VIAL INJ IV SCH (10:22)
[2022-09-12] MEDS: SODIUM CHLOR 0.9% PF (SALINE LOCK) 10ML VIAL/SYR IV SCH (11:36)
[2022-09-12 12:50] VITALS: BP 135/87
[2022-09-12 13:12] VITALS: BP 135/87
== END 2022-09-12 14:09 | disposition left against medical advice (07) | DRG 373 ==
LOC: ER 14:53 → OVERFLOW 20:14 → WEST WING 09-09 09:49
PROVIDERS: ADMIT Registered Nurse; ATTEND Internal Medicine Geriatric Medicine
PROC: 05HC33Z Insertion of Infusion Device into Left Basilic Vein, Percutaneous Approach (ICD-10-PCS; principal; 2022-09-11)
PROC: B54NZZA Ultrasonography of Left Upper Extremity Veins, Guidance (ICD-10-PCS; 2022-09-11)
DX: K35.33 Acute appendicitis with perforation, localized peritonitis, and gangrene, with abscess (principal); G40.909 Epilepsy, unspecified, not intractable, without status epilepticus; Z53.29 Procedure and treatment not carried out because of patient's decision for other reasons; E10.9 Type 1 diabetes mellitus without complications; E66.9 Obesity, unspecified; I10 Essential (primary) hypertension; J45.909 Unspecified asthma, uncomplicated; Z79.1 Long term (current) use of non-steroidal anti-inflammatories (NSAID); Z79.899 Other long term (current) drug therapy; Z82.49 Family history of ischemic heart disease and other diseases of the circulatory system; Z83.3 Family history of diabetes mellitus; Z80.9 Family history of malignant neoplasm, unspecified; Z86.73 Personal history of transient ischemic attack (TIA), and cerebral infarction without residual deficits; Z79.4 Long term (current) use of insulin; Z82.0 Family history of epilepsy and other diseases of the nervous system; Z68.32 Body mass index [BMI] 32.0-32.9, adult; Z71.3 Dietary counseling and surveillance
CPT/HCPCS: 36415; 36569; 71045; 74176; 80048; 80053; 80061; 81001; 82962; 83036; 83690; 83735; 84443; 85025; 85610; 85730; 86850; 86900; 86901; 87040; 96361; 96365; 96375; C9113; G0378; J1815; J2405; J2543; J3480

== ENCOUNTER 2022-09-29 06:00 | Inpatient (IN) | payer OTHER ==
[~2022-09-29] VITALS: Ht 167.6 cm; Wt 87.4 kg
[~2022-09-29 06:00] MED LIST changes: +ATOR40TA52 PO; +BICT1TAB PO; +CLIN300C70 PO; -CLIN300C8 PO; +IBUP-1455 PO; -IBUP800T26 PO; +LISI-275 PO; +MONT5CHW12 PO; -MONT5CHW23 PO
[2022-09-29] MEDS ORDERED: SODIUM CHLORIDE 0.9% 1,000 ML IV ONE ×3 (06:30→10:30)
[2022-09-29 06:46] LABS: Basophils # (auto) 0.1 10 ^3/uL (0-0.2); Basophils % (auto) 2.1 % (0.0-2.0); Eosinophils # (auto) 0.4 10 ^3/uL (0-0.8); Eosinophils % (auto) 12.2 % (0.0-7.0); Hematocrit 32.8 % (41.0-53.0); Hemoglobin 11.5 g/dL (13.5-17.5); Lymphocytes # (auto) 1.2 10 ^3/uL (0.4-5.4); Lymphocytes % (auto) 35.9 % (10.0-50.0); Mean Corpuscular Hemoglobin 30.6 pg (28.0-32.0); Mean Corpuscular Hgb Conc. 34.9 g/dL (32.0-36.0); Mean Corpuscular Volume 87.5 fL (80.0-100.0); Monocytes # (auto) 0.3 10 ^3/uL (0-1.3); Monocytes % (auto) 9.1 % (0.0-12.0); Neutrophils # (auto) 1.3 10 ^3/uL (1.6-8.6); Neutrophils % (auto) 40.7 % (37.0-80.0); Nucleated Red Blood Cells % 0.2 %; Red Blood Cells 3.75 10^6/uL (4.5-5.90); Red Cell Distribution Width 14.1 % (11.8-14.3); White Blood Cell 3.3 10^3/uL (4.4-10.8)
[2022-09-29 06:50] LABS: Albumin 3.3 g/dL (3.4-5.0); Calcium 8.2 mg/dL (8.5-10.1); Potassium 3.9 mmol/L (3.5-5.1)
[2022-09-29 06:53] LABS: BUN/Creatinine Ratio 21.1 (10.0-20.0); Bilirubin, Total 0.4 mg/dL (0.2-1.0); Total Protein 7.7 g/dL (6.4-8.2)
[2022-09-29 06:55] LABS: Urine Bacteria NONE SEEN /hpf (None Seen); Urine Blood TRACE /uL (Negative); Urine Specific Gravity 1.017 (1.001-1.035); Urine WBC <1 /hpf (0 - 3)
[2022-09-29] MEDS ORDERED: IOHEXOL 300 MG/ML 100ML BOTTLE IJ ONE (07:54)
[2022-09-29] MEDS ORDERED: MORPHINE SULFATE INJ 2 MG/ml SYRG IV PRN (10:00)
[2022-09-29] MEDS ORDERED: ACETAMINOPHEN 325 MG TAB PO PRN (10:00)
[2022-09-29] MEDS ORDERED: HYDROcodone-ACET 5/325MG TAB PO PRN (10:00)
[2022-09-29] MEDS ORDERED: ONDANSETRON HCL 4 MG/2 ML VIAL IV PRN (10:00)
[2022-09-29] MEDS ORDERED: hydrALAZINE HCL 20 MG/ML VL IV PRN (10:30)
[2022-09-29] MEDS ORDERED: DEXTROSE (50%) 50ML SYRG IV PRN (10:30)
[2022-09-29 10:45] LABS: INR 0.95 (0.9-1.15); Partial Thromboplastin Time 26.8 sec (24.6-33.4)
[2022-09-29] MEDS ORDERED: PIPERACILLIN-TAZOB 3.375GM 100 ML IV SCH (11:00)
[2022-09-29] MEDS ORDERED: InsuLIN REG 1unit/0.01ml Soln (100units/ml) SC SCH (11:30)
[2022-09-29] MEDS ORDERED: ACCU-CHEK COMFORT CURVE STRIP VI SCH (11:30)
[2022-09-29 12:52] VITALS: BP 147/88
[2022-09-29 13:00] VITALS: BP 147/88
[2022-09-29 17:00] VITALS: BP 137/82
[2022-09-29] MEDS ORDERED: ATORVASTATIN 20 MG TAB PO SCH (22:00)
[2022-09-30] MEDS ORDERED: LISINOPRIL 5 MG TAB PO SCH (10:00)
[2022-09-30] MEDS ORDERED: PANTOPRAZOLE 40 MG TAB PO SCH (10:00)
[2022-09-30] MEDS ORDERED: BICTEGRAVIR EMTRICITABINE TENOFOVIR PO SCH (10:00)
== END 2022-09-29 17:50 | disposition left against medical advice (07) | DRG 395 ==
LOC: ER 06:00 → OVERFLOW 10:11 → CENTRAL 13:25
PROVIDERS: ADMIT Nurse Practitioner Family; ATTEND Nurse Practitioner Family
DX: K35.80 Unspecified acute appendicitis (principal); I10 Essential (primary) hypertension; E10.9 Type 1 diabetes mellitus without complications; Z53.29 Procedure and treatment not carried out because of patient's decision for other reasons; E66.9 Obesity, unspecified; J45.909 Unspecified asthma, uncomplicated; E86.0 Dehydration; Z86.73 Personal history of transient ischemic attack (TIA), and cerebral infarction without residual deficits; Z79.4 Long term (current) use of insulin; Z98.84 Bariatric surgery status; Z68.31 Body mass index [BMI] 31.0-31.9, adult
CPT/HCPCS: 36415; 71045; 74177; 80053; 81001; 82962; 83605; 83690; 85025; 85610; 85730; 96365; G0378; J2543

== ENCOUNTER 2023-01-30 07:24 | Emergency (ER) | payer OTHER ==
[~2023-01-30] VITALS: Ht 167.6 cm; Wt 87.3 kg
[~2023-01-30 07:24] MED LIST changes: +BACDST PO; +CEPH500C PO
[2023-01-30 08:12] VITALS: BP 154/91; PULSE 73; RESP 14; TEMP 98; O2SAT 99
[2023-01-30] MEDS ORDERED: cefTRIAXone SOD 1,000 MG VL IM ONE (08:30)
[2023-01-30] MEDS ORDERED: HYDROcodone-ACET 5/325MG TAB PO ONE (08:30)
== END 2023-01-30 08:47 | disposition home or self-care (01) ==
LOC: ER 07:24
DX: S00.86XD Insect bite (nonvenomous) of other part of head, subsequent encounter (principal); I10 Essential (primary) hypertension; E11.9 Type 2 diabetes mellitus without complications; Z86.73 Personal history of transient ischemic attack (TIA), and cerebral infarction without residual deficits; Z79.1 Long term (current) use of non-steroidal anti-inflammatories (NSAID); Z79.899 Other long term (current) drug therapy; W57.XXXD Bitten or stung by nonvenomous insect and other nonvenomous arthropods, subsequent encounter
CPT/HCPCS: 96372; 99283; J0696

== ENCOUNTER → 2023-02-10 04:30 | Emergency (ER) | payer OTHER ==
[~2023-02-10 04:30] MED LIST changes: +cefTRIAXone SOD 1,000 MG VL ONE
== END | disposition home or self-care (01) ==
LOC: ER 04:30
DX: J02.9 Acute pharyngitis, unspecified (principal); Z90.89 Acquired absence of other organs
CPT/HCPCS: 96372; 99283; J0696

== ENCOUNTER 2023-03-31 06:25 | Emergency (ER) | payer OTHER ==
[~2023-03-31] VITALS: Ht 167.6 cm; Wt 80.9 kg
[~2023-03-31 06:25] MED LIST changes: -cefTRIAXone SOD 1,000 MG VL ONE
[2023-03-31 06:51] VITALS: BP 138/83; PULSE 80; RESP 16; O2SAT 100
[2023-03-31] MEDS ORDERED: ACET-1080 PO (08:04)
[2023-03-31] MEDS ORDERED: ACETAMINOPHEN 500 MG TAB PO ONE (08:15)
== END 2023-03-31 08:15 | disposition home or self-care (01) ==
LOC: ER 06:25
DX: S62.663A Nondisplaced fracture of distal phalanx of left middle finger, initial encounter for closed fracture (principal); I10 Essential (primary) hypertension; E11.9 Type 2 diabetes mellitus without complications; Z86.73 Personal history of transient ischemic attack (TIA), and cerebral infarction without residual deficits; Z79.1 Long term (current) use of non-steroidal anti-inflammatories (NSAID); Z79.2 Long term (current) use of antibiotics; Z79.899 Other long term (current) drug therapy; W23.0XXA Caught, crushed, jammed, or pinched between moving objects, initial encounter; Y93.89 Activity, other specified; Y92.89 Other specified places as the place of occurrence of the external cause; Y99.8 Other external cause status
CPT/HCPCS: 29130; 73130

== ENCOUNTER 2023-04-18 07:34 | Emergency (ER) | payer OTHER ==
[~2023-04-18] VITALS: Ht 167.6 cm; Wt 87.0 kg
[~2023-04-18 07:34] MED LIST changes: +ACET-1080 PO
[2023-04-18 09:14] LABS: Urine Bacteria NONE SEEN /hpf (None Seen); Urine Blood TRACE /uL (Negative); Urine Clarity Clear (Clear); Urine Color Yellow (Yellow); Urine Protein, UAD 3+ (Negative); Urine Specific Gravity 1.028 (1.001-1.035); Urine WBC 1 /hpf (0 - 3); Urine pH 6.5 (5.0-8.0)
[2023-04-18 09:25] VITALS: BP 170/86; PULSE 79; RESP 18; TEMP 97.9; O2SAT 97
[2023-04-18 09:25] LABS: COVID19 ANTIGEN SOFIA FIA NEGATIVE (NEGATIVE)
[2023-04-18 09:26] LABS: Rapid Influenza A Negative (Negative); Rapid Influenza B Negative (Negative)
[2023-04-18] MEDS ORDERED: BENZ100C97 PO (09:46)
[2023-04-18] MEDS ORDERED: AUG875T PO (09:46)
[2023-04-18] MEDS ORDERED: PROM1SOL4 PO (09:46)
== END 2023-04-18 09:47 | disposition home or self-care (01) ==
LOC: ER 07:34
DX: J06.9 Acute upper respiratory infection, unspecified (principal); I10 Essential (primary) hypertension; E11.9 Type 2 diabetes mellitus without complications; Z86.73 Personal history of transient ischemic attack (TIA), and cerebral infarction without residual deficits; Z20.822 Contact with and (suspected) exposure to COVID-19
CPT/HCPCS: 36415; 81001; 87426; 87804

== ENCOUNTER 2023-07-06 06:18 | Emergency (ER) | payer OTHER ==
[~2023-07-06] VITALS: Ht 167.6 cm; Wt 86.4 kg
[~2023-07-06 06:18] MED LIST changes: +AUG875T PO; +BENZ100C97 PO; +IBU600T PO; +IBUP1TAB5 PO
[2023-07-06 06:56] VITALS: BP 171/94; PULSE 73; RESP 18; TEMP 97; O2SAT 100
[2023-07-06] MEDS: cefTRIAXone SOD 1,000 MG VL IM ONE (07:13)
[2023-07-06] MEDS ORDERED: BACDST PO (07:20)
== END 2023-07-06 07:22 | disposition home or self-care (01) ==
LOC: ER 06:18
DX: L03.116 Cellulitis of left lower limb (principal); E11.9 Type 2 diabetes mellitus without complications; I10 Essential (primary) hypertension; Z86.73 Personal history of transient ischemic attack (TIA), and cerebral infarction without residual deficits
CPT/HCPCS: 96372; 99283; J0696

== ENCOUNTER 2023-08-09 08:42 | Emergency (ER) | payer OTHER ==
[~2023-08-09] VITALS: Ht 167.6 cm; Wt 85.0 kg
[~2023-08-09 08:42] MED LIST changes: +CLIN1CAP70 PO; -CLIN300C70 PO; -GLIP5TAB12 PO; +GLIP5TAB21 PO
[2023-08-09 09:48] VITALS: BP 146/86; PULSE 68; RESP 18; TEMP 98; O2SAT 99
[2023-08-09] MEDS ORDERED: TRAM50TA2 PO (11:13)
[2023-08-09] MEDS ORDERED: CYCL-837 PO (11:13)
== END 2023-08-09 11:26 | disposition home or self-care (01) ==
LOC: EDBD 08:42 → ER 08:42
DX: M79.10 Myalgia, unspecified site (principal); E11.9 Type 2 diabetes mellitus without complications; I10 Essential (primary) hypertension; Z86.73 Personal history of transient ischemic attack (TIA), and cerebral infarction without residual deficits; V49.9XXA Car occupant (driver) (passenger) injured in unspecified traffic accident, initial encounter; W22.10XA Striking against or struck by unspecified automobile airbag, initial encounter; Y93.89 Activity, other specified; Y92.89 Other specified places as the place of occurrence of the external cause; Y99.8 Other external cause status

== ENCOUNTER 2023-11-28 07:20 | Emergency (ER) | payer OTHER ==
[~2023-11-28] VITALS: Ht 167.6 cm; Wt 68.2 kg
[~2023-11-28 07:20] MED LIST changes: +CYCL-837 PO; +TRAM50TA2 PO
[2023-11-28 07:59] VITALS: BP 138/93; PULSE 75; RESP 16; TEMP 97.6; O2SAT 100
[2023-11-28] MEDS: KETOROLAC TROMETH 30 MG/ML 1ML VIAL IM ONE (08:17)
[2023-11-28] MEDS ORDERED: METH-1181 PO (08:49)
[2023-11-28] MEDS ORDERED: LIDO5DIS21 TOP (08:49)
== END 2023-11-28 08:56 | disposition home or self-care (01) ==
LOC: ER 07:20
DX: M54.2 Cervicalgia (principal); M54.50 Low back pain, unspecified; M54.6 Pain in thoracic spine; M79.18 Myalgia, other site; I10 Essential (primary) hypertension; E11.9 Type 2 diabetes mellitus without complications; Z86.73 Personal history of transient ischemic attack (TIA), and cerebral infarction without residual deficits; V43.52XA Car driver injured in collision with other type car in traffic accident, initial encounter; Y93.89 Activity, other specified; Y92.481 Parking lot as the place of occurrence of the external cause; Y99.8 Other external cause status
CPT/HCPCS: 96372; 99283; J1885

== ENCOUNTER 2024-02-20 06:09 | Emergency (ER) | payer OTHER ==
[~2024-02-20] VITALS: Ht 167.6 cm; Wt 84.0 kg
[~2024-02-20 06:09] MED LIST changes: +HYD25TP TOP; +LIDO5DIS21 TOP; +METH-1181 PO; +NAPR-746 PO
[2024-02-20 07:19] VITALS: BP 159/100; PULSE 71; RESP 16; TEMP 97.1; O2SAT 99
== END 2024-02-20 07:35 | disposition home or self-care (01) ==
LOC: ER 06:09
DX: S70.361D Insect bite (nonvenomous), right thigh, subsequent encounter (principal); E11.9 Type 2 diabetes mellitus without complications; Z79.899 Other long term (current) drug therapy; Z86.73 Personal history of transient ischemic attack (TIA), and cerebral infarction without residual deficits; W57.XXXD Bitten or stung by nonvenomous insect and other nonvenomous arthropods, subsequent encounter

== ENCOUNTER 2024-06-07 07:08 | Emergency (ER) | payer OTHER ==
[~2024-06-07] VITALS: Ht 167.6 cm; Wt 84.3 kg
[2024-06-07 07:08] VITALS: TEMP 98.6
[2024-06-07 07:36] VITALS: PULSE 86; RESP 22; O2SAT 98
--- NOTE | 2024-06-07 08:01 | ED.PDOC ---
History of Present Illness(SKN HPI Comments a 43 YEAR OLD MALE PRESENTS TO THE ED WITH CHIEF COMPLAINT OF INSECT BITE. PATIENT REPORTS THAT HE HAD NOTICED WHAT APPEARED TO BE AN INSECT BITE TO HIS RIGHT WRIST SINCE TUESDAY. PATIENT RELAYS THAT IT HAS HAD WORSENING REDNESS, SWELLING, PAIN, AND FEELS HOT TO TOUCH. PATIENT STATES HE HAS BEEN APPLYING WARM COMPRESSES TO THE WOUND SITE. PATIENT DENIES ANY DISCHARGE, FEVER, CHILLS, NUMBNESS, OR WEAKNESS. NO OTHER SYMPTOMS REPORTED AT THIS TIME OF CARE. Chief Complaint: Insect Bite Time Seen by MD: 07:55 Primary Care Provider: DR OLIVAREZ History of Present Illness: Nurses Notes, Medications, Allergies Allergies: Coded Allergies: NO KNOWN ALLERGIES (Unverified , 01/04/15) Home Meds Active Scripts Tramadol HCl (Tramadol HCl) 50 Mg Tab, 50 MG PO TID, #21 TAB Prov:KEITH BURGESS 06/07/24 Cephalexin Monohydrate (Cephalexin) 500 Mg Cap, 1 CAP PO QID, #28 CAP Prov:KEITH BURGESS 06/07/24 Sulfamethoxazole W/Trimethopri (Bactrim Ds Tablet) 1 Tab Tb, 1 TAB PO BID, #20 TAB Prov:KEITH BURGESS 06/07/24 Naproxen (Naproxen) 500 Mg Tab, 500 MG PO BIDWM for 10 Days, #20 TAB 0 Refills Prov:ECHO JARRETT NP 02/20/24 Cephalexin Monohydrate (Cephalexin) 500 Mg Cap, 1 CAP PO QID for 5 Days, #20 CAP 0 Refills Prov:ECHO JARRETT NP 02/20/24 Hydrocortone (Hydrocortisone 2.5%) 1 Applic Ap, 1 APPLIC TOP BID for 5 Days, #60 GRAMS 0 Refills Prov:ECHO JARRETT NP 02/12/24 Lidocaine (LIDODERM 5% TOPICAL PATCH) 1 Patch Ph, 1 PATCH TOP DAILY for 30 Days, #30 PATCH 0 Refills Prov:ECHO JARRETT NP 11/28/23 Methocarbamol (Methocarbamol) 500 Mg Tab, 500 MG PO QIDP for 14 Days, #56 TAB 0 Refills Prov:ECHO JARRETT NP 11/28/23 Cyclobenzaprine Hcl (Cyclobenzaprine Hcl) 5 Mg Tab, 1 TAB PO QHSP PRN for 10 Days, #10 TAB 0 Refills Prov:ECHO JARRETT OUTSIDE SALES REPRESENTATIVE INSURANCE 08/09/23 Tramadol Hcl (Tramadol Hcl) 50 Mg Tab, 50 MG PO Q8HP PRN for 7 Days, #21 TAB 0 Refills Prov:ECHO JARRETT OUTSIDE SALES REPRESENTATIVE INSURANCE 08/09/23 Ibuprofen Micronized (Ibuprofen) 800 Mg Tab, 800 MG PO TID PRN, #60 TAB Prov:SHAHRAM BUSTILLOS EDUCATION CONSULTANT 07/06/23 Sulfamethoxazole W/Trimethopri (Bactrim Ds Tablet) 1 Tab Tb, 1 TAB PO BID for 10 Days, #20 TAB Prov:SHAHRAM BUSTILLOS E EDUCATION CONSULTANT 07/06/23 Ibuprofen Micronized (Ibuprofen) 600 Mg Tab, 600 MG PO Q6HPRN PRN for 5 Days, #20 TAB Prov:SUZANNA GALICIAA A EDUCATION CONSULTANT 07/03/23 Sulfamethoxazole W/Trimethopri (Bactrim Ds Tablet) 1 Tab Tb, 1 TAB PO BID for 10 Days, #20 TAB Prov:ELLIOTT GALICIA A EDUCATION CONSULTANT 07/03/23 Ibuprofen Micronized (MOTRIN TABLET) 600 Mg Tb, 600 MG PO TID, #40 TAB *Black box warning-NSAIDS can increase risk of UT & hypertension, GI irritation, ulceration, bleed, perferation. Do not use post cardiac surgery. Use short duration/lowest effective dose. Prov:ELLIOTT GALICIA EDUCATION CONSULTANT 07/03/23 Sulfamethoxazole W/Trimethopri (Bactrim Ds Tablet) 1 Tab Tb, 1 TAB PO BID for 7 Days, #14 TAB Prov:ELLIOTT GALICIA A EDUCATION CONSULTANT 07/03/23 Promethazine-Dm (Promethazine Dm 6.25-15 mg/5Ml) 1 Lucrecia Lucrecia, 5 ML PO TID for 10 Days, #150 ML 0 Refills Prov:ECHO JARRETT OUTSIDE SALES REPRESENTATIVE INSURANCE 04/18/23 Benzonatate (Benzonatate) 100 Mg Cap, 100 MG PO TID for 10 Days, #30 CAP 0 Re fills Prov:ECHO JARRETT NP 04/18/23 Amoxicillin & Pot Clavulanate (AUGMENTIN TABLET) 875 Mg Tb, 875 MG PO BID for 10 Days, #20 TAB 0 Refills Prov:ECHO JARRETT OUTSIDE SALES REPRESENTATIVE INSURANCE 04/18/23 Acetaminophen (Tylenol 8 Hour Arthritis) 650 Mg Tab, 650 MG PO TID, #30 TAB Prov:KEITH BURGESS 03/31/23 Cephalexin Monohydrate (Cephalexin) 500 Mg Cap, 1 CAP PO QID, #40 CAP Prov:KEITH BURGESS 01/29/23 Sulfamethoxazole W/Trimethopri (Bactrim Ds Tablet) 1 Tab Tb, 1 TAB PO BID for 10 Days, #20 TAB Prov:KEITH BURGESS 01/29/23 Acetaminophen (Tylenol) 325 Mg Cap, 325 MG PO Q4HPRN PRN, #30 CAP 0 Refills Take 1-2 caps po q4h prn for pain. (Do not exceed 3,000mg of acetaminophen in 24 hours) Prov:LOGAN PHILLIPS [facility] 08/18/22 Ibuprofen Micronized (Ibuprofen) 800 Mg Tab, 800 MG PO TID PRN, #30 TAB Prov:SHAHRAM BUSTILLOSP 03/16/22 Azithromycin (Zithromax Z-Scott) 250 Mg Tab, 250 MG PO DAILY for 5 Days, #6 TAB Prov:SHAHRAM BUSTILLOS [facility] 03/16/22 Promethazine-Dm (Promethazine Dm 6.25-15 mg/5Ml) 1 Lucrecia Lucrecia, 5 ML PO TID PRN, #240 ML Prov:SHAHRAM BUSTILLOSP 03/16/22 Montelukast Sodium (Singulair) 5 Mg Chw, 1 TAB PO DAILY, #30 TAB 5 Refills Prov:SHAHRAM BUSTILLOSP 03/16/22 Clindamycin Hcl (Clindamycin Hcl) 300 Mg Cap, 300 MG PO TID for 7 Days, #21 CAP Prov:NAE DINERO MD 11/29/21 Cephalexin (KEFLEX 500) 500 Mg Cap, 1 CAP PO TID for 7 Days, #21 CAP Prov:NAE DINERO MD 11/29/21 Methylprednisolone (Medrol Dosepak) 4 Mg Scott, 4 MG PO UD, #21 TAB UAD Prov:KEITH BURGESS 11/06/21 Hydroxyzine Pamoate (Vistaril) 25 Mg Cap, 1 CAP PO TID, #30 CAP 2 Refills Prov:ADITYABRANDONJohn MONIQUE 11/06/21 Reported Medications Nwchnstworz-Uyhnqnpapjtyf-Voxu (Biktarvy 50-200-25 mg) 1 Tab Tab, 1 TAB PO DAILY 09/08/22 Atorvastatin Calcium (ATORVASTATIN CALCIUM) 40 Mg Tab, 1 TAB PO DAILY 09/08/22 Lisinopril (Lisinopril) 5 Mg Tab, 1 TAB PO DAILY 09/08/22 Glipizide (Glipizide) 5 Mg Tab, 1 TAB PO BID, #60 TAB 3 Refills 04/17/15 Information Source: Patient Mode of Arrival: Ambulatory Severity: Moderate Timing: Days Duration: Since onset Prehospital treatment: None Location: Other (RIGHT WRIST) Mechanism: Preceding Wound, Insect Object: None Condition of Object: None Retained Foreign Body: No Wound Type: Abscess Immunization Status of Animal: NA Tetanus: Unknown History of: Diabetes, HIV Associated Signs and Symptoms: Redness, Swelling, Pain Past Medical History PAST MEDICAL HISTORY: CVA, DM, HIV, HTN, Seizures Surgical History: Denies all surgeries Family History Family History: Reviewed,noncontributory to illness Family History (Other): Diverticulitis Social History Smoker: Non-Smoker Alcohol: Occasionally Drugs: Denies Drug Use Lives In: Home Constitutional: denies: chills, diaphoresis, fatigue, fever, malaise, sweats, weakness, others EENTM: denies: blurred vision, double vision, ear bleeding, ear discharge, ear drainage, ear pain, ear ringing, eye pain, eye redness, hearing loss, mouth pain, mouth swelling, nasal discharge, nose bleeding, nose congestion, nose pain, photophobia, tearing, throat pain, throat swelling, voice changes, others Respiratory: denies: cough, hemoptysis, orthopnea, SOB at rest, shortness of breath, SOB with excertion, stridor, wheezing, others Cardiovascular: denies: chest pain, dizzy spells, diaphoresis, Dyspnea on exertion, edema, irregular heart beat, left arm pain, lightheadedness, palpitations, PND, syncope, others Gastrointestinal: denies: abdomen distended, abdominal pain, blood streaked bowels, constipated, diarrhea, dysphagia, difficulty swallowing, hematemesis, melena, nausea, poor appetite, poor fluid intake, rectal bleeding, rectal pain, vomiting, others Genitourinary: denies: burning, dysuria, flank pain, frequency, hematuria, incontinence, penile discharge, penile sore, pain, testicle pain, testicle swelling, urgency, others Neurological: denies: dizziness, fainting, headache, left sided numbness, left sided weakness, numbness, paresthesia, pre-existing deficit, right sided numbness, right sided weakness, seizure, speech problems, tingling, tremors, we akness, others Musculoskeletal: denies: back pain, gout, joint pain, joint swelling, muscle pain, muscle stiffness, neck pain, others Integumetry: reports: lumps (RIGHT LATERAL WRIST ), wounds (RIGHT WRIST WITH REDNESS, SWELLING, AND HEAT); denies: bruises, change in color, change in hair/nails, dryness, laceration, lesions, rash, others Allergic/Immunocompromised: denies: Difficulty Healing, Frequent Infections, Hives, Itching, others Hematologic/Lymphatic: denies: anemia, blood clots, easy bleeding, easy bruising, swollen glands, others Endocrine: denies: excessive hunger, excessive sweating, excessive thirst, excessive urination, flushing, intolerance to cold, intolerance to heat, unexplained weight gain, unexplained weight loss, others Psychiatric: denies: anxiety, bipolar disorder, depression, hopeless, panic disorder, schizophrenia, sleepless, suicidal, others All Other Systems: Reviewed and Negative Physical Exam General Appearance: No Apparent Distress, Normal HEENT: Normal ENT Inspection, PERRL/EOMI, Pharynx Normal Neck: Full Range of Motion, Non-Tender, Normal, Normal Inspection Respiratory: Chest Non-Tender, Lungs Clear, No Accessory Muscle Use, No Respiratory Distress, Normal Breath Sounds Cardiovascular: No Edema, No JVD, No Murmur, No Gallop, Normal Peripheral Pulses, Regular Rate/Rhythm Breast Exam: Deferred Gastrointestinal: No Organomegaly, Non Tender, No Pulsatile Mass, Normal Bowel Sounds, Soft Genitalia: Deferred Pelvic: Deferred Rectal: Deferred Extremities: No calf tenderness, Normal capillary refill, Normal range of motion, No pedal edema, Tender (WITH A RED BUMP ON RIGHT LATERAL WRIST, NO OPEN WOUND SEEN. ) Musculoskeletal : Apperance: Normal Neurologic: Alert, instructional support assistant II-XII nml as Tested, No Motor Deficits, Normal Affect, Normal Mood, No Sensory Deficits Cerebellar Function: Normal Reflexes: Normal Skin: Dry, Normal Color, Warm, Other (A BUMP WITH LOCALIZED REDNESS, TENDERNESS AND MILD SWELLING ON RIGHT LATERAL WRIST WALL, NO OPEN WOUND SEEN, +INSECT BITE CYNTHIA. ) Peripheral Pulses: 2+ carotid (R), 2+ carotid (L), 2+ Radial (R), 2+ Radial (L) Lymphatic: No Adenopathy Was a procedure done? Was a procedure done?: No Differential Diagnosis (INTG) Differential Diagnosis: Cellulitis, Insect Envenomation X-Ray, Labs, Meds, VS Vital Signs Date Time Temp Pulse Resp B/P (MAP) Pulse Ox O2 Delivery O2 Flow Rate FiO2 06/07/24 07:36 98.6 86 22 159/101 (120) 98 06/07/24 07:08 86 22 98 Room Air 06/07/24 07:08 98.6 86 22 159/101 (120) 98 98.6 Current Medications Medications (Trade) Dose Ordered Sig/Sukhwinder Route Start Time Stop Time Status Last Admin Ceftriaxone Sodium (Rocephin) 1,000 mg ONCE ONCE IM 06/07/24 08:00 06/07/24 08:01 DC 06/07/24 08:04 Acetaminophen (Tylenol Tablet) 1,000 mg ONCE ONCE PO 06/07/24 08:00 06/07/24 08:01 DC 06/07/24 08:03 X-Ray, Labs, Meds, VS Comment EXTERNAL MEDICAL RECORDS REVIEWED: 02/12/24 FOR INSECT BITE WOUND INDEPENDENT HISTORIANS: [NONE] SOCIAL DETERMINANTS OF HEALTH: [NONE] LABS ORDERED: NONE REVIEWED AND INTERPRETED RESULTS: NONE IMAGING ORDERED: NONE TREATMENTS ORDERED: ROCEPHIN 1G IM, TYLENOL 1G PO PROCEDURES PERFORMED: NONE CRITICAL CARE TIME: NONE I HAVE DISCUSSED THE PATIENT WITH THE ATTENDING PHYSICIAN DR. DINERO AND HE AGREES WITH THE PATIENT'S PLAN OF CARE AND DISPOSITION. BASED ON HISTORY OF PRESENT ILLNESS, AND PHYSICAL EXAM, PATIENT WILL BE DISCHARGED HOME. DISCUSSED PLAN FOR DISCHARGE HOME WITH RX. MEDICATION WARNINGS GIVEN. SHARED DECISION MAKING: DISCUSSED WITH PATIENT THAT THEIR WORKUP WAS NORMAL. PATIENT INSTRUCTED TO FOLLOW UP WITH PRIMARY CARE PROVIDER IN 1-2 DAYS FOR RE- EVALUATION OF SYMPTOMS. PATIENT VERBALIZES UNDERSTANDING TO RETURN TO ED FOR NEW OR WORSENING SYMPTOMS OR IF FOLLOW UP WITH PCP CANNOT BE OBTAINED. PATIENT FEELS COMFORTABLE GOING HOME AT THIS TIME. ALL QUESTIONS ADDRESSED AT TIME OF DISCHARGE. Time of 1ST Reevaluation: 08:21 Reevaluation 1ST: Improved Patient Education/Counseling: Diagnosis, Treatment, Need For Follow Up Family Education/Counseling: Diagnosis, Treatment, No Family Present Medical Screening: No EMC Exist At This Time Departure 1 Departure Time of Disposition: 08:21 Impression: Primary Impression: Insect bite wound Disposition: HOME / SELF CARE / HOMELESS Condition: Stable Additional Instructions: FOLLOW-UP WITH PCP IN 1 TO 2 DAYS. TAKE MEDICATIONS PRESCRIBED. RETURN TO ED FOR ANY NEW OR WORSENING SYMPTOMS. e-Prescriptions Tramadol HCl (Tramadol HCl) 50 Mg Tab 50 MG PO TID, #21 TAB Prov: KEITH BURGESS 06/07/24 Cephalexin Monohydrate (Cephalexin) 500 Mg Cap 1 CAP PO QID, #28 CAP Prov: KEITH BURGESS 06/07/24 Sulfamethoxazole W/Trimethopri (Bactrim Ds Tablet) 1 Tab Tb 1 TAB PO BID, #20 TAB Prov: KEITH BURGESS 06/07/24 Discharged With: Self Critical Care Note Critical Care Time?: No Stability Stability form required: No Heart Score Heart Score: Heart Score Response (Comments) Value History N/A 0 EKG N/A 0 Age N/A 0 Risk Factors N/A 0 Troponin N/A 0 Total 0 I personally scribed for KEITH BURGESS ([email or web address]) on 06/07/24 at 08:01. Electronically submitted by Norberto Ahumada ([email or web address]). I personally scribed for KEITH BURGESS ([email or web address]) on 06/07/24 at 08:02. Electronically submitted by Norberto Ahumada ([email or web address]). KEITH BURGESS Jun 07, 2024 08:01
[2024-06-07] MEDS: ACETAMINOPHEN 325 MG TAB PO ONE (08:03)
[2024-06-07] MEDS: cefTRIAXone SOD 1,000 MG VL IM ONE (08:04)
[2024-06-07] MEDS ORDERED: TRAM-626 PO (08:17)
[2024-06-07 08:20] VITALS: BP 143/91
== END 2024-06-07 08:22 | disposition home or self-care (01) ==
LOC: ER 07:08
DX: S60.861A Insect bite (nonvenomous) of right wrist, initial encounter (principal); I10 Essential (primary) hypertension; E11.9 Type 2 diabetes mellitus without complications; Z86.73 Personal history of transient ischemic attack (TIA), and cerebral infarction without residual deficits; Z79.1 Long term (current) use of non-steroidal anti-inflammatories (NSAID); Z79.624 Long term (current) use of inhibitors of nucleotide synthesis; Z79.84 Long term (current) use of oral hypoglycemic drugs; Z79.899 Other long term (current) drug therapy; W57.XXXA Bitten or stung by nonvenomous insect and other nonvenomous arthropods, initial encounter; Y93.89 Activity, other specified; Y92.89 Other specified places as the place of occurrence of the external cause; Y99.8 Other external cause status
CPT/HCPCS: 96372; 99283; J0696

== ENCOUNTER 2024-07-04 05:25 | Emergency (ER) | payer OTHER ==
[~2024-07-04] VITALS: Ht 167.6 cm; Wt 83.3 kg
[~2024-07-04 05:25] MED LIST changes: +TRAM-626 PO
[2024-07-04 05:37] VITALS: BP 164/106; PULSE 76; RESP 14; TEMP 97.9; O2SAT 98
--- NOTE | 2024-07-04 07:25 | DVH ---
EXAM: XR Chest, 1 View CLINICAL INDICATION: cough/ r/o pna TECHNIQUE: Frontal view of the chest. COMPARISON: CHEST TWO VIEWS ROUTINE on DOS: 03/06/20 FINDINGS: LUNGS AND PLEURAL SPACES: Unremarkable. No consolidation. No pneumothorax. HEART: Unremarkable. No cardiomegaly. MEDIASTINUM: Unremarkable. Normal mediastinal contour. BONES/JOINTS: Unremarkable. No acute fracture. OTHER FINDINGS: . None. IMPRESSION: No acute cardiopulmonary process.
[2024-07-04 08:12] LABS: Basophils # (auto) 0.1 10 ^3/uL (0-0.2); Basophils % (auto) 1.1 % (0.0-2.0); Eosinophils # (auto) 0.8 10 ^3/uL (0-0.8); Eosinophils % (auto) 13.3 % (0.0-7.0); Hematocrit 35.2 % (41.0-53.0); Hemoglobin 12.1 g/dL (13.5-17.5); Lymphocytes # (auto) 1.1 10 ^3/uL (0.4-5.4); Lymphocytes % (auto) 17.9 % (10.0-50.0); Mean Corpuscular Hgb Conc. 34.2 g/dL (32.0-36.0); Mean Corpuscular Volume 87.8 fL (80.0-100.0); Monocytes # (auto) 0.4 10 ^3/uL (0-1.3); Monocytes % (auto) 6.8 % (0.0-12.0); Neutrophils # (auto) 3.8 10 ^3/uL (1.6-8.6); Neutrophils % (auto) 60.9 % (37.0-80.0); Platelet Count (auto) 218 10^3/uL (140-450); Red Blood Cells 4.01 10^6/uL (4.5-5.90); Red Cell Distribution Width 12.7 % (11.8-14.3); White Blood Cell 6.2 10^3/uL (4.4-10.8)
[2024-07-04 08:23] LABS: Potassium 4.6 mmol/L (3.5-5.1); Sodium 144 mmol/L (136-145)
[2024-07-04 08:24] LABS: Anion Gap 6 (5-15); Carbon Dioxide 27 mmol/L (20-31)
[2024-07-04 08:25] LABS: Calcium 9.1 mg/dL (8.7-10.4)
[2024-07-04 08:29] LABS: BUN/Creatinine Ratio 12.8 (10.0-20.0); Blood Urea Nitrogen 15 mg/dL (9-23)
[2024-07-04 08:38] LABS: Chloride 111 mmol/L (98-107)
[2024-07-04 09:00] LABS: Rapid Influenza A Negative (Negative); Rapid Influenza B Negative (Negative)
[2024-07-04 09:01] LABS: COVID19 ANTIGEN SOFIA FIA NEGATIVE (NEGATIVE)
[2024-07-04 09:02] LABS: Glucose 99 mg/dL (74-106)
--- NOTE | 2024-07-04 09:04 | ED.PDOC ---
SOB-HPI HPI Comments 43 year old male presents for musculoskeletal pain and possible uri symptoms Started 3 days ago Chief Complaint: Flu like Time Seen by MD: 06:18 Primary Care Provider: DR OLIVAREZ Reviewed notes: Nurses Notes, Medications, Allergies Information Source: Patient Mode of Arrival: Ambulatory Past Medical History PAST MEDICAL HISTORY: CVA, DM, HIV, HTN, Seizures Surgical History: Denies all surgeries Family History Family History: Reviewed,noncontributory to illness Family History (Other): Diverticulitis Social History Smoker: Non-Smoker Alcohol: Occasionally Drugs: Denies Drug Use Lives In: Home X-Ray, Labs, Meds, VS Vital Signs Date Time Temp Pulse Resp B/P (MAP) Pulse Ox O2 Delivery O2 Flow Rate FiO2 07/04/24 05:37 Room Air 07/04/24 05:37 97.9 76 14 164/106 (125) 98 97.9 07/04/24 05:37 97.9 76 14 64/106 (92) 98 Lab Test 07/04/24 07:30 07/04/24 06:55 07/04/24 00:00 Range/Units White Blood Count 6.2 4.4-10.8 10^3/uL Red Blood Count 4.01 L 4.5-5.90 10^6/uL Hemoglobin 12.1 L 13.5-17.5 g/dL Hematocrit 35.2 L 41.0-53.0 % Mean Corpuscular Volume 87.8 80.0-100.0 fL Mean Corpuscular Hemoglobin 30.0 28.0-32.0 pg Mean Corpuscular Hemoglobin Concent 34.2 32.0-36.0 g/dL Red Cell Distribution Width 12.7 11.8-14.3 % Platelet Count 218 140-450 10^3/uL Mean Platelet Volume 7.1 6.9-10.8 fL Neutrophils (%) (Auto) 60.9 37.0-80.0 % Lymphocytes (%) (Auto) 17.9 10.0-50.0 % Monocytes (%) (Auto) 6.8 0.0-12.0 % Eosinophils (%) (Auto) 13.3 H 0.0-7.0 % Basophils (%) (Auto) 1.1 0.0-2.0 % Neutrophils # (Auto) 3.8 1.6-8.6 10 ^3/uL Lymphocytes # (Auto) 1.1 0.4-5.4 10 ^3/uL Monocytes # (Auto) 0.4 0-1.3 10 ^3/uL Eosinophils # (Auto) 0.8 0-0.8 10 ^3/uL Basophils # (Auto) 0.1 0-0.2 10 ^3/uL Nucleated Red Blood Cells 0.0 % Sodium Level 144 136-145 mmol/L Potassium Level 4.6 3.5-5.1 mmol/L Chloride Level 111 H 98-107 mmol/L Carbon Dioxide Level 27 20-31 mmol/L Anion Gap 6 5-15 Blood Urea Nitrogen 15 9-23 mg/dL Creatinine 1.17 0.700-1.30 mg/dL Glomerular Filtration Rate Calc 79 >90 mL/min BUN/Creatinine Ratio 12.8 10.0-20.0 Serum Glucose Pending Calcium Level 9.1 8.7-10.4 mg/dL Influenza Type A Antigen Pending Influenza Type B Antigen Pending SARS-CoV-2 Antigen (Rapid) Pending Departure 1 Departure Time of Disposition: 09:01 Impression: Primary Impression: Viral syndrome Additional Impression: Myalgia Disposition: 01 HOME / SELF CARE / HOMELESS Condition: Stable e-Prescriptions Promethazine-Dm (Promethazine Dm 6.25-15 mg/5Ml) 1 Lucrecia Lucrecia 5 ML PO TID for 10 Days, #150 ML 0 Refills Prov: ECHO JARRETT TELEVISION INSTALLER 07/04/24 Benzonatate (Benzonatate) 100 Mg Cap 1 CAP PO TID for 10 Days, #30 CAP 0 Refills Prov: ECHO JARRETT TELEVISION INSTALLER 07/04/24 Amoxicillin & Pot Clavulanate (AUGMENTIN TABLET) 875 Mg Tb 875 MG PO BID for 7 Days, #14 TAB 0 Refills Prov: ECHO JARRETT TELEVISION INSTALLER 07/04/24 Naproxen (Naproxen) 500 Mg Tab 500 MG PO BIDWM for 10 Days, #20 TAB 0 Refills Prov: ECHO JARRETT TELEVISION INSTALLER 07/04/24 ECHO JARRETT NP Jul 04, 2024 09:04
[2024-07-04] MEDS: KETOROLAC TROMETH 30 MG/ML 1ML VIAL IM ONE (09:11)
== END 2024-07-04 09:19 | disposition left against medical advice (07) ==
LOC: ER 05:25
DX: B34.9 Viral infection, unspecified (principal); M79.10 Myalgia, unspecified site; E11.9 Type 2 diabetes mellitus without complications; I10 Essential (primary) hypertension; Z86.73 Personal history of transient ischemic attack (TIA), and cerebral infarction without residual deficits; Z20.822 Contact with and (suspected) exposure to COVID-19
CPT/HCPCS: 36415; 71046; 80048; 85025; 87426; 87804; 96372; 99284; J1885

== ENCOUNTER 2024-10-21 06:23 | Emergency (ER) | payer OTHER ==
[~2024-10-21] VITALS: Ht 167.6 cm; Wt 84.4 kg
[2024-10-21] MEDS ORDERED: CEFD300C2 PO (06:54)
[2024-10-21] MEDS ORDERED: BACI-5 EX (06:54)
[2024-10-21] MEDS ORDERED: NEOM0.1S10 RIGHTEYE (06:54)
--- NOTE | 2024-10-21 06:55 | ED.PDOC ---
Eye-HPI HPI Comments 43Year old male 100 to the emergency department complaining of insect bite or skin lesion under his right eye with the swelling and inflammation of the periorbital area and some conjunctival irritation this happened about two three days ago Time Seen by MD: 06:27 Primary Care Provider: DR OLIVAREZ Reviewed Notes: Nurses Notes, Medications, Allergies Allergies: Coded Allergies: NO KNOWN ALLERGIES (Unverified , 01/04/15) Home Meds Active Scripts Bacitracin Zinc (Bacitracin) 500 Unit/Gm Oin, 500 UNIT EX TID for 5 Days, #15 OIN Prov:AURORA DOE MD 10/21/24 Nddedtpc-Htwfnp-Klzkwred (Maxitrol) 0.1 % Sue, 1 DROP RIGHTEYE QID for 5 Days, #5 ML Prov:AURORA DOE MD 10/21/24 Cefdinir (Cefdinir) 300 Mg Cap, 1 CAP PO BID for 10 Days, #20 CAP Prov:AURORA DOE MD 10/21/24 Promethazine-Dm (Promethazine Dm 6.25-15 mg/5Ml) 1 Lucrecia Lucrecia, 5 ML PO TID for 10 Days, #150 ML 0 Refills Prov:ECHO JARRETT LEAD RAMP SERVICE MAN 07/04/24 Benzonatate (Benzonatate) 100 Mg Cap, 1 CAP PO TID for 10 Days, #30 CAP 0 Refills Prov:ECHO JARRETT LEAD RAMP SERVICE MAN 07/04/24 Amoxicillin & Pot Clavulanate (AUGMENTIN TABLET) 875 Mg Tb, 875 MG PO BID for 7 Days, #14 TAB 0 Refills Prov:ECHO JARRETT LEAD RAMP SERVICE MAN 07/04/24 Naproxen (Naproxen) 500 Mg Tab, 500 MG PO BIDWM for 10 Days, #20 TAB 0 Refills Prov:ECHO JARRETT LEAD RAMP SERVICE MAN 07/04/24 Tramadol HCl (Tramadol HCl) 50 Mg Tab, 50 MG PO TID, #21 TAB Prov:KEITH BURGESS 06/07/24 Cephalexin Monohydrate (Cephalexin) 500 Mg Cap, 1 CAP PO QID, #28 CAP Prov:KEITH BURGESS 06/07/24 Sulfamethoxazole W/Trimethopri (Bactrim Ds Tablet) 1 Tab Tb, 1 TAB PO BID, #20 TAB Prov:BRANDON BURGESSJohn MONIQUE 06/07/24 Cephalexin Monohydrate (Cephalexin) 500 Mg Cap, 1 CAP PO QID for 5 Days, #20 CAP 0 Refills Prov:ECHO JARRETT LEAD RAMP SERVICE MAN 02/20/24 Hydrocortone (Hydrocortisone 2.5%) 1 Applic Ap, 1 APPLIC TOP BID for 5 Days, #60 GRAMS 0 Refills Prov:ECHO JARRETT LEAD RAMP SERVICE MAN 02/12/24 Lidocaine (LIDODERM 5% TOPICAL PATCH) 1 Patch Ph, 1 PATCH TOP DAILY for 30 Days, #30 PATCH 0 Refills Prov:ECHO JARRETT LEAD RAMP SERVICE MAN 11/28/23 Methocarbamol (Methocarbamol) 500 Mg Tab, 500 MG PO QIDP for 14 Days, #56 TAB 0 Refills Prov:ECHO JARRETT LEAD RAMP SERVICE MAN 11/28/23 Cyclobenzaprine Hcl (Cyclobenzaprine Hcl) 5 Mg Tab, 1 TAB PO QHSP PRN for 10 Days, #10 TAB 0 Refills Prov:ECHO JARRETT LEAD RAMP SERVICE MAN 08/09/23 Tramadol Hcl (Tramadol Hcl) 50 Mg Tab, 50 MG PO Q8HP PRN for 7 Days, #21 TAB 0 Refills Prov:ECHO JARRETT LEAD RAMP SERVICE MAN 08/09/23 Ibuprofen Micronized (Ibuprofen) 800 Mg Tab, 800 MG PO TID PRN, #60 TAB Prov:SHAHRAM BUSTILLOS BRICK OR BLOCK MAKER 07/06/23 Sulfamethoxazole W/Trimethopri (Bactrim Ds Tablet) 1 Tab Tb, 1 TAB PO BID for 10 Days, #20 TAB Prov:SHAHRAM BUSTILLOS BRICK OR BLOCK MAKER 07/06/23 Ibuprofen Micronized (Ibuprofen) 600 Mg Tab, 600 MG PO Q6HPRN PRN for 5 Days, #20 TAB Prov:FRIDA,ELLIOTT A BRICK OR BLOCK MAKER 24 Sulfamethoxazole W/Trimethopri (Bactrim Ds Tablet) 1 Tab Tb, 1 TAB PO BID for 10 Days, #20 TAB Prov:FRIDA,ELLIOTT A BRICK OR BLOCK MAKER 24 Ibuprofen Micronized (MOTRIN TABLET) 600 Mg Tb, 600 MG PO TID, #40 TAB *Black box warning-NSAIDS can increase risk of DC & hypertension, GI irritation, ulceration, bleed, perferation. Do not use post cardiac surgery. Use short duration/lowest effective dose. Prov:ELLIOTT GALICIA John BRICK OR BLOCK MAKER 07/03/23 Sulfamethoxazole W/Trimethopri (Bactrim Ds Tablet) 1 Tab Tb, 1 TAB PO BID for 7 Days, #14 TAB Prov:ELLIOTT GALICIA John BRICK OR BLOCK MAKER 07/03/23 Promethazine-Dm (Promethazine Dm 6.25-15 mg/5Ml) 1 Lucrecia Lucrecia, 5 ML PO TID for 10 Days, #150 ML 0 Refills Prov:ECHO JARRETT LEAD RAMP SERVICE MAN 04/18/23 Benzonatate (Benzonatate) 100 Mg Cap, 100 MG PO TID for 10 Days, #30 CAP 0 Refills Prov:ECHO JARRETT LEAD RAMP SERVICE MAN 04/18/23 Amoxicillin & Pot Clavulanate (AUGMENTIN TABLET) 875 Mg Tb, 875 MG PO BID for 10 Days, #20 TAB 0 Refills Prov:ECHO JARRETT LEAD RAMP SERVICE MAN 04/18/23 Acetaminophen (Tylenol 8 Hour Arthritis) 650 Mg Tab, 650 MG PO TID, #30 TAB Prov:KEITH BURGESS 03/31/23 Cephalexin Monohydrate (Cephalexin) 500 Mg Cap, 1 CAP PO QID, #40 CAP Prov:KEITH BURGESS 01/29/23 Sulfamethoxazole W/Trimethopri (Bactrim Ds Tablet) 1 Tab Tb, 1 TAB PO BID for 10 Days, #20 TAB Prov:KEITH BURGESS 01/29/23 Acetaminophen (Tylenol) 325 Mg Cap, 325 MG PO Q4HPRN PRN, #30 CAP 0 Refills Take 1-2 caps po q4h prn for pain. (Do not exceed 3,000mg of acetaminophen in 24 hours) Prov:LOGAN PHILLIPS BRICK OR BLOCK MAKER 08/18/22 Ibuprofen Micronized (Ibuprofen) 800 Mg Tab, 800 MG PO TID PRN, #30 TAB Prov:SHAHRAM BUSTILLOS BRICK OR BLOCK MAKER 03/16/22 Azithromycin (Zithromax Z-Scott) 250 Mg Tab, 250 MG PO DAILY for 5 Days, #6 TAB Prov:SHAHRAM BUSTILLOS BRICK OR BLOCK MAKER 03/16/22 Promethazine-Dm (Promethazine Dm 6.25-15 mg/5Ml) 1 Lucrecia Lucrecia, 5 ML PO TID PRN, #240 ML Prov:SHAHRAM BUSTILLOS 03/16/22 Montelukast Sodium (Singulair) 5 Mg Chw, 1 TAB PO DAILY, #30 TAB 5 Refills Prov:SHAHRAM BUSTILLOS BRICK OR BLOCK MAKER 03/16/22 Clindamycin Hcl (Clindamycin Hcl) 300 Mg Cap, 300 MG PO TID for 7 Days, #21 CAP Prov:NAE DINERO MD 11/29/21 Cephalexin (KEFLEX 500) 500 Mg Cap, 1 CAP PO TID for 7 Days, #21 CAP Prov:NAE DINERO MD 11/29/21 Methylprednisolone (Medrol Dosepak) 4 Mg Scott, 4 MG PO UD, #21 TAB UAD Prov:KEITH BURGESS 11/06/21 Hydroxyzine Pamoate (Vistaril) 25 Mg Cap, 1 CAP PO TID, #30 CAP 2 Refills Prov:KEITH BURGESS 11/06/21 Reported Medications Jhwlecmlyiw-Ibikvzlqijobg-Vfgz (Biktarvy 50-200-25 mg) 1 Tab Tab, 1 TAB PO DAILY 09/08/22 Atorvastatin Calcium (ATORVASTATIN CALCIUM) 40 Mg Tab, 1 TAB PO DAILY 09/08/22 Lisinopril (Lisinopril) 5 Mg Tab, 1 TAB PO DAILY 09/08/22 Glipizide (Glipizide) 5 Mg Tab, 1 TAB PO BID, #60 TAB 3 Refills 04/17/15 Information Source: Patient Mode of Arrival: Ambulatory Timing: Days Duration: Since onset Quality: Pain, Red Eye Location: Right Lids: Red, Swelling Conjunctiva: Injection, Swelling Cornea: Right eye, Normal Pupils: Normal EOM: Right eye, Normal Fundus: Right eye, Normal Slit lamp exam: Right eye, Normal Anterior chamber: Normal Mouth: Normal ENT Ear Exam: Normal, Normal, Normal Nose: Normal Sinuses: Normal Oropharynx: Normal Onset: Spontaneous Throat Exposed to: None History of: None Last Tetanus: UTD Associated signs and symptoms: None Past Medical History PAST MEDICAL HISTORY: CVA, DM, HIV, HTN, Seizures Surgical History: Denies all surgeries Surgical History (Other): Gastric bypass Family History Family History: Reviewed,noncontributory to illness Family History (Other): Diverticulitis Social History Smoker: Non-Smoker Alcohol: Occasionally Drugs: Denies Drug Use Lives In: Home Constitutional: denies: chills, diaphoresis, fatigue, fever, malaise, sweats, weakness, others EENTM: reports: blurred vision, eye redness; denies: double vision, ear bleeding, ear discharge, ear drainage, ear pain, ear ringing, eye pain, hearing loss, mouth pain, mouth swelling, nasal discharge, nose bleeding, nose congestion, nose pain, photophobia, tearing, throat pain, throat swelling, voice changes, others Respiratory: denies: cough, hemoptysis, orthopnea, SOB at rest, shortness of breath, SOB with excertion, stridor, wheezing, others Cardiovascular: denies: chest pain, dizzy spells, diaphoresis, Dyspnea on exert ion, edema, irregular heart beat, left arm pain, lightheadedness, palpitations, PND, syncope, others Gastrointestinal: denies: abdomen distended, abdominal pain, blood streaked bowels, constipated, diarrhea, dysphagia, difficulty swallowing, hematemesis, melena, nausea, poor appetite, poor fluid intake, rectal bleeding, rectal pain, vomiting, others Genitourinary: denies: burning, dysuria, flank pain, frequency, hematuria, incontinence, penile discharge, penile sore, pain, testicle pain, testicle swelling, urgency, others Neurological: denies: dizziness, fainting, headache, left sided numbness, left sided weakness, numbness, paresthesia, pre-existing deficit, right sided numbness, right sided weakness, seizure, speech problems, tingling, tremors, weakness, others Musculoskeletal: denies: back pain, gout, joint pain, joint swelling, muscle pain, muscle stiffness, neck pain, others Integumetry: reports: lesions, others (Skin lesion under right eye with redness swollen mild edema possibly from insect bites); denies: bruises, change in color, change in hair/nails, dryness, laceration, lumps, rash, wounds Allergic/Immunocompromised: denies: Difficulty Healing, Frequent Infections, Hives, Itching, others Hematologic/Lymphatic: denies: anemia, blood clots, easy bleeding, easy bruising, swollen glands, others Endocrine: denies: excessive hunger, excessive sweating, excessive thirst, excessive urination, flushing, intolerance to cold, intolerance to heat, unexplained weight gain, unexplained weight loss, others Psychiatric: denies: anxiety, bipolar disorder, depression, hopeless, panic disorder, schizophrenia, sleepless, suicidal, others All Other Systems: Reviewed and Negative Physical Exam General Appearance: No Apparent Distress, Normal HEENT: Eye Lid (R), Normal ENT Inspection, Pale Conjuntivae (R) (Red conjunctiva per orbital inflammation), PERRL/EOMI Neck: Full Range of Motion, Non-Tender, Normal, Normal Inspection Respiratory: Chest Non-Tender, Lungs Clear, No Accessory Muscle Use, No Respiratory Distress, Normal Breath Sounds Cardiovascular: No Edema, No JVD, No Murmur, No Gallop, Normal Peripheral Pulses, Regular Rate/Rhythm Breast Exam: Deferred Gastrointestinal: No Organomegaly, Non Tender, No Pulsatile Mass, Normal Bowel Sounds, Soft Genitalia: Deferred Pelvic: Deferred Rectal: Deferred Extremities: No calf tenderness, Normal capillary refill, Normal inspection, Normal range of motion, Non-tender, No pedal edema Neurologic: Alert, data center manager II-XII nml as Tested, No Motor Deficits, Normal Affect, Normal Mood, No Sensory Deficits Cerebellar Function: Normal Reflexes: Normal Skin: Dry, Normal Color, Warm, Wounds, Other (Insect bite versus skin lesion red swollen inflamed but mostly periorbital area) Peripheral Pulses: 1+ carotid (R), 1+ carotid (L) Lymphatic: No Adenopathy Was a procedure done? Was a procedure done?: No EENT DIFF Eye: Conjunctivitis, Other (Periorbital inflammation and swelling with a skin lesion under the eye on the face) Ear: N/A Nose: N/A Mouth: N/A Sore Throat: N/A Other Differential Diagnosis Mildly infected papule under the eye from possible insect bite X-Ray, Labs, Meds, VS Vital Signs Date Time Temp Pulse Resp B/P (MAP) Pulse Ox O2 Delivery O2 Flow Rate FiO2 10/21/24 06:38 98.3 56 18 149/95 (113) 99 98.3 X-Ray, Labs, Meds, VS Comment Course in the emergency department eventful patient came in because of redness swelling inflammation around the right eye with a skin lesion on the face from possible insect bite Time of 1ST Reevaluation: 06:48 Reevaluation 1ST: Unchanged Time of 2ND Reevaluation: 06:51 Reevaluation 2ND: Unchanged Consultation: PCP Patient Education/Counseling: Diagnosis, Treatment, Prognosis, Need For Follow Up Family Education/Counseling: Diagnosis, Treatment, Prognosis, Need For Follow Up, No Family Present SEPSIS Sepsis Screen Vital Signs Date Time Temp Pulse Resp B/P (MAP) Pulse Ox O2 Delivery O2 Flow Rate FiO2 10/21/24 06:38 98.3 56 18 149/95 (113) 99 98.3 Departure 1 Departure Time of Disposition: 06:49 Impression: Primary Impression: Benign skin lesion of face Additional Impressions: Periorbital swelling Insect bite wound Disposition: 01 HOME / SELF CARE / HOMELESS Condition: Fair Additional Instructions: cleaned wound with peroxide and apply the ointment e-Prescriptions Bacitracin Zinc (Bacitracin) 500 Unit/Gm Oin 500 UNIT EX TID for 5 Days, #15 OIN Prov: AURORA DOE MD 10/21/24 Wukqfhye-Qbgukr-Zcyjnagv (Maxitrol) 0.1 % Sue 1 DROP RIGHTEYE QID for 5 Days, #5 ML Prov: AURORA DOE MD 10/21/24 Cefdinir (Cefdinir) 300 Mg Cap 1 CAP PO BID for 10 Days, #20 CAP Prov: AURORA DOE MD 10/21/24 Discharged With: Self Critical Care Note Critical Care Time?: No Stability Stability form required: No Heart Score Heart Score: Heart Score Response (Comments) Value History N/A 0 EKG N/A 0 Age <45 0 Risk Factors 1 or 2 risk factors 1 Troponin N/A 0 Total 1 AURORA DOE MD Oct 21, 2024 06:55
[2024-10-21 07:30] VITALS: BP 154/74; PULSE 70; RESP 17; TEMP 97.5; O2SAT 99
[2024-10-21] MEDS ORDERED: MAX5OPS OP (11:52)
== END 2024-10-21 07:36 | disposition home or self-care (01) ==
LOC: ER 06:23
DX: S00.86XA Insect bite (nonvenomous) of other part of head, initial encounter (principal); L98.8 Other specified disorders of the skin and subcutaneous tissue; R22.0 Localized swelling, mass and lump, head; F10.90 Alcohol use, unspecified, uncomplicated; E11.9 Type 2 diabetes mellitus without complications; I10 Essential (primary) hypertension; Z79.899 Other long term (current) drug therapy; Z79.1 Long term (current) use of non-steroidal anti-inflammatories (NSAID); Z86.73 Personal history of transient ischemic attack (TIA), and cerebral infarction without residual deficits; Z98.84 Bariatric surgery status; Z79.84 Long term (current) use of oral hypoglycemic drugs; Z79.624 Long term (current) use of inhibitors of nucleotide synthesis; W57.XXXA Bitten or stung by nonvenomous insect and other nonvenomous arthropods, initial encounter; Y93.89 Activity, other specified; Y92.89 Other specified places as the place of occurrence of the external cause; Y99.8 Other external cause status; Y90.9 Presence of alcohol in blood, level not specified

== ENCOUNTER 2024-10-30 06:29 | Emergency (ER) | payer OTHER ==
[~2024-10-30] VITALS: Ht 167.6 cm; Wt 82.0 kg
[~2024-10-30 06:29] MED LIST changes: +BACI-5 EX; +CEFD300C2 PO; +MAX5OPS OP; +NEOM0.1S10 RIGHTEYE
[2024-10-30 07:00] VITALS: BP 156/105; PULSE 79; RESP 18; TEMP 98.1; O2SAT 98
[2024-10-30] MEDS ORDERED: NAPR-957 PO (07:01)
[2024-10-30] MEDS ORDERED: CEFD300C2 PO (07:01)
--- NOTE | 2024-10-30 07:02 | ED.PDOC ---
History of Present Illness(SKN HPI Comments 44 year old male with a past medical history of seizures, CVA, HTN, DM, HIV presents to the emergency department with a chief compliant of insect bite to RT cheek onset 4 days. Patient states he has been experiencing insect bite to RT cheek for the past 4 days, was seen by PCP, given antibiotics as well as Tylenol for pain. Patient came to ED for wound check, conceree Chief Complaint: Insect Bite Time Seen by MD: 06:50 Primary Care Provider: DR OLIVAREZ History of Present Illness: Nurses Notes, Medications, Allergies Allergies: Coded Allergies: NO KNOWN ALLERGIES (Unverified , 01/04/15) Home Meds Active Scripts Naproxen (Naproxen) 375 Mg Tab, 1 TAB PO BIDPC for 10 Days, #20 TAB 0 Refills Prov:ECHO JARRETT NP 10/30/24 Cefdinir (Cefdinir) 300 Mg Cap, 1 CAP PO BID for 10 Days, #20 CAP Prov:ECHO JARRETT NP 10/30/24 Bldqkepe-Zqqfgm-Otmvrfqs (MAXITROL 0.1% OPTHALMIC SUSPENSION) [address], 1 DROP OP BID for 5 Days, #5 DROP Prov:AURORA DOE MD 10/21/24 Bacitracin Zinc (Bacitracin) 500 Unit/Gm Oin, 500 UNIT EX TID for 5 Days, #15 OIN Prov:AURORA DOE MD 10/21/24 Xmiserru-Eqnqed-Remgstbz (Maxitrol) 0.1 % Sue, 1 DROP RIGHTEYE QID for 5 Days, #5 ML Prov:AUROAR DOE MD 10/21/24 Promethazine-Dm (Promethazine Dm 6.25-15 mg/5Ml) 1 Lucrecia Lucrecia, 5 ML PO TID for 10 Days, #150 ML 0 Refills Prov:ECHO JARRETT NP 07/04/24 Benzonatate (Benzonatate) 100 Mg Cap, 1 CAP PO TID for 10 Days, #30 CAP 0 Refills Prov:ECHO JARRETT NP 07/04/24 Amoxicillin & Pot Clavulanate (AUGMENTIN TABLET) 875 Mg Tb, 875 MG PO BID for 7 Days, #14 TAB 0 Refills Prov:ECHO JARRETT NP 07/04/24 Naproxen (Naproxen) 500 Mg Tab, 500 MG PO BIDWM for 10 Days, #20 TAB 0 Refills Prov:ECHO JARRETT NUISANCE WILDLIFE TRAPPER 07/04/24 Tramadol HCl (Tramadol HCl) 50 Mg Tab, 50 MG PO TID, #21 TAB Prov:KEITH BURGESS ENEIDA 06/07/24 Cephalexin Monohydrate (Cephalexin) 500 Mg Cap, 1 CAP PO QID, #28 CAP Prov:KEITH BURGESS ENEIDA 06/07/24 Sulfamethoxazole W/Trimethopri (Bactrim Ds Tablet) 1 Tab Tb, 1 TAB PO BID, #20 TAB Prov:KEITH BURGESS PA 06/07/24 Cephalexin Monohydrate (Cephalexin) 500 Mg Cap, 1 CAP PO QID for 5 Days, #20 CAP 0 Refills Prov:ECHO JARRETT NUISANCE WILDLIFE TRAPPER 02/20/24 Hydrocortone (Hydrocortisone 2.5%) 1 Applic Ap, 1 APPLIC TOP BID for 5 Days, #60 GRAMS 0 Refills Prov:ECHO JARRETT [place] 02/12/24 Lidocaine (LIDODERM 5% TOPICAL PATCH) 1 Patch Ph, 1 PATCH TOP DAILY for 30 Days, #30 PATCH 0 Refills Prov:ECHO JARRETT NUISANCE WILDLIFE TRAPPER 11/28/23 Methocarbamol (Methocarbamol) 500 Mg Tab, 500 MG PO QIDP for 14 Days, #56 TAB 0 Refills Prov:ECHO JARRETT [place] 11/28/23 Cyclobenzaprine Hcl (Cyclobenzaprine Hcl) 5 Mg Tab, 1 TAB PO QHSP PRN for 10 Days, #10 TAB 0 Refills Prov:ECHO JARRETT NUISANCE WILDLIFE TRAPPER 08/09/23 Tramadol Hcl (Tramadol Hcl) 50 Mg Tab, 50 MG PO Q8HP PRN for 7 Days, #21 TAB 0 Refills Prov:ECHO JARRETT NUISANCE WILDLIFE TRAPPER 08/09/23 Ibuprofen Micronized (Ibuprofen) 800 Mg Tab, 800 MG PO TID PRN, #60 TAB Prov:SHAHRAM BUSTILLOS HANDKERCHIEF MAKER 07/06/23 Sulfamethoxazole W/Trimethopri (Bactrim Ds Tablet) 1 Tab Tb, 1 TAB PO BID for 10 Days, #20 TAB Prov:SHAHRAM BUSTILLOS HANDKERCHIEF MAKER 07/06/23 Ibuprofen Micronized (Ibuprofen) 600 Mg Tab, 600 MG PO Q6HPRN PRN for 5 Days, #20 TAB Prov:ELLITOT GALICIA A HANDKERCHIEF MAKER 07/03/23 Sulfamethoxazole W/Trimethopri (Bactrim Ds Tablet) 1 Tab Tb, 1 TAB PO BID for 10 Days, #20 TAB Prov:SUZANNA GALICIAA A HANDKERCHIEF MAKER 07/03/23 Ibuprofen Micronized (MOTRIN TABLET) 600 Mg Tb, 600 MG PO TID, #40 TAB *Black box warning-NSAIDS can increase risk of [place] & hypertension, GI irritation, ulceration, bleed, perferation. Do not use post cardiac surgery. Use short duration/lowest effective dose. Prov:ELLIOTT GALICIA A HANDKERCHIEF MAKER 07/03/23 Sulfamethoxazole W/Trimethopri (Bactrim Ds Tablet) 1 Tab Tb, 1 TAB PO BID for 7 Days, #14 TAB Prov:ELLIOTT GALICIA A HANDKERCHIEF MAKER 07/03/23 Promethazine-Dm (Promethazine Dm 6.25-15 mg/5Ml) 1 Lucrecia Lucrecia, 5 ML PO TID for 10 Days, #150 ML 0 Refills Prov:ECHO JARRETT NUISANCE WILDLIFE TRAPPER 04/18/23 Benzonatate (Benzonatate) 100 Mg Cap, 100 MG PO TID for 10 Days, #30 CAP 0 Refills Prov:ECHO JARRETT NUISANCE WILDLIFE TRAPPER 04/18/23 Amoxicillin & Pot Clavulanate (AUGMENTIN TABLET) 875 Mg Tb, 875 MG PO BID for 10 Days, #20 TAB 0 Refills Prov:ECHO JARRETT NUISANCE WILDLIFE TRAPPER 04/18/23 Acetaminophen (Tylenol 8 Hour Arthritis) 650 Mg Tab, 650 MG PO TID, #30 TAB Prov:KEITH BURGESS 03/31/23 Cephalexin Monohydrate (Cephalexin) 500 Mg Cap, 1 CAP PO QID, #40 CAP Prov:KEITH BURGESS 01/29/23 Sulfamethoxazole W/Trimethopri (Bactrim Ds Tablet) 1 Tab Tb, 1 TAB PO BID for 10 Days, #20 TAB Prov:KEITH BURGESS 01/29/23 Acetaminophen (Tylenol) 325 Mg Cap, 325 MG PO Q4HPRN PRN, #30 CAP 0 Refills Take 1-2 caps po q4h prn for pain. (Do not exceed 3,000mg of acetaminophen in 24 hours) Prov:LOGAN PHILLIPS [facility] 08/18/22 Ibuprofen Micronized (Ibuprofen) 800 Mg Tab, 800 MG PO TID PRN, #30 TAB Prov:SHAHRAM BUSTILLOS [facility] 03/16/22 Azithromycin (Zithromax Z-Scott) 250 Mg Tab, 250 MG PO DAILY for 5 Days, #6 TAB Prov:SHAHRAM BUSTILLOS [facility] 03/16/22 Promethazine-Dm (Promethazine Dm 6.25-15 mg/5Ml) 1 Lucrecia Lucrecia, 5 ML PO TID PRN, #240 ML Prov:SHAHRAM BUSTILLOS [facility] 03/16/22 Montelukast Sodium (Singulair) 5 Mg Chw, 1 TAB PO DAILY, #30 TAB 5 Refills Prov:SHAHRAM BUSTILLOS [facility] 03/16/22 Clindamycin Hcl (Clindamycin Hcl) 300 Mg Cap, 300 MG PO TID for 7 Days, #21 CAP Prov:NAE DINERO MD 11/29/21 Cephalexin (KEFLEX 500) 500 Mg Cap, 1 CAP PO TID for 7 Days, #21 CAP Prov:NAE DINERO MD 11/29/21 Methylprednisolone (Medrol Dosepak) 4 Mg Scott, 4 MG PO UD, #21 TAB UAD Prov:KEITH BURGESS 11/06/21 Hydroxyzine Pamoate (Vistaril) 25 Mg Cap, 1 CAP PO TID, #30 CAP 2 Refills Prov:KEITH BURGESS 11/06/21 Reported Medications Opuffamyenb-Woqwzkxgllvun-Qwxu (Biktarvy 50-200-25 mg) 1 Tab Tab, 1 TAB PO DAILY 09/08/22 Atorvastatin Calcium (ATORVASTATIN CALCIUM) 40 Mg Tab, 1 TAB PO DAILY 09/08/22 Lisinopril (Lisinopril) 5 Mg Tab, 1 TAB PO DAILY 09/08/22 Glipizide (Glipizide) 5 Mg Tab, 1 TAB PO BID, #60 TAB 3 Refills 04/17/15 Information Source: Patient Mode of Arrival: Ambulatory Severity: Moderate Timing: Days Duration: Since onset Prehospital treatment: None Location: Face (RT cheek) Mechanism: Spider Tetanus: UTD Associated Signs and Symptoms: Other Past Medical History PAST MEDICAL HISTORY: CVA, DM, HIV, HTN, Seizures Surgical History (Other): gastric sleeve Family History Family History: Reviewed,noncontributory to illness Family History (Other): Diverticulitis Social History Smoker: Non-Smoker Alcohol: Occasionally Drugs: Denies Drug Use Lives In: Home Integumetry: reports: others (spider bite RT cheek) Physical Exam General Appearance: Normal HEENT: Normal ENT Inspection, Pharynx Normal, TMs Normal Neck: Full Range of Motion, Non-Tender, Normal, Normal Inspection Respiratory: Chest Non-Tender, Lungs Clear, No Accessory Muscle Use, No Respiratory Distress, Normal Breath Sounds Cardiovascular: No Edema, No JVD, No Murmur, No Gallop, Normal Peripheral Pulses, Regular Rate/Rhythm Breast Exam: Deferred Gastrointestinal: No Organomegaly, Non Tender, No Pulsatile Mass, Normal Bowel Sounds, Soft Genitalia: Deferred Pelvic: Deferred Rectal: Deferred Extremities: No calf tenderness, Normal capillary refill, Normal inspection, Normal range of motion, Non-tender, No pedal edema Musculoskeletal : Apperance: Normal Neurologic: Alert, wharfmaster II-XII nml as Tested, No Motor Deficits, Normal Affect, Normal Mood, No Sensory Deficits Cerebellar Function: Normal Reflexes: Normal Skin: Dry, Normal Color, Warm Lymphatic: No Adenopathy Was a procedure done? Was a procedure done?: No X-Ray, Labs, Meds, VS Vital Signs Date Time Temp Pulse Resp B/P (MAP) Pulse Ox O2 Delivery O2 Flow Rate FiO2 10/30/24 07:00 98.1 79 18 156/105 (122) 98 98.1 10/30/24 07:00 79 98 Room Air* 0 21 10/30/24 06:54 98.1 79 18 156/105 (122) 98 98.1 Time of 1ST Reevaluation: 07:20 Reevaluation 1ST: Improved Patient Education/Counseling: Diagnosis, Treatment Family Education/Counseling: No Family Present SEPSIS Sepsis Screen Vital Signs Date Time Temp Pulse Resp B/P (MAP) Pulse Ox O2 Delivery O2 Flow Rate FiO2 10/30/24 07:00 98.1 79 18 156/105 (122) 98 98.1 10/30/24 07:00 79 98 Room Air* 0 21 10/30/24 06:54 98.1 79 18 156/105 (122) 98 98.1 Departure 1 Departure e-Prescriptions Naproxen (Naproxen) 375 Mg Tab 1 TAB PO BIDPC for 10 Days, #20 TAB 0 Refills Prov: ECHO JARRETT NP 10/30/24 Cefdinir (Cefdinir) 300 Mg Cap 1 CAP PO BID for 10 Days, #20 CAP Prov: ECHO JARRETT NP 10/30/24 Stability Stability form required: No Heart Score Heart Score: Heart Score Response (Comments) Value History N/A 0 EKG N/A 0 Age N/A 0 Risk Factors N/A 0 Troponin N/A 0 Total 0 I personally scribed for ECHO JARRETT NP ([email or web address]) on 10/30/24 at 07:02. Electronically submitted by Faviola Diez ([email or web address]). I personally scribed for ECHO JARRETT NP ([email or web address]) on 10/30/24 at 07:04. Electronically submitted by Faviola Diez ([email or web address]). ECHO JARRETT NP Oct 30, 2024 07:02
--- NOTE | 2024-10-30 07:02 | ED.PDOC ---
History of Present Illness(SKN HPI Comments This is a pleasant 44-year-old gentleman that presents for a wound check. The patient was initially seen October 21 S/P possible insect/spider bite to the right lower eyelid. Patient was seen and was discharged same day with a course of antibiotics. Patient was prescribed the following: Bacitracin Zinc (Bacitracin) 500 Unit/Gm Oin 500 UNIT EX TID for 5 Days, #15 OIN 10/21/24 Cocformm-Pyyekl-Zpnugevz (Maxitrol) 0.1 % Sue 1 DROP RIGHTEYE QID for 5 Days, #5 ML 10/21/24 Cefdinir (Cefdinir) 300 Mg Cap 1 CAP PO BID for 10 Days, #20 CAP 10/21/24 Today he reports the symptoms are gradually improving but continues to endorse tenderness to the right lower eyelid. Pain rated 1/10. Taking OTC Tylenol with improvement. Warm compresses prn. Completed course of ABx. Denies drainage from the affected site. Denies worsening symptoms. Denies fevers, chills. Time Seen by MD: 06:48 Primary Care Provider: DR OLIVAREZ History of Present Illness: Nurses Notes, Medications, Allergies Allergies: Coded Allergies: NO KNOWN ALLERGIES (Unverified , 01/04/15) Home Meds Active Scripts Naproxen (Naproxen) 375 Mg Tab, 1 TAB PO BIDPC for 10 Days, #20 TAB 0 Refills Prov:ECHO JARRETT GEAR GENERATOR SET UP OPERATOR 10/30/24 Cefdinir (Cefdinir) 300 Mg Cap, 1 CAP PO BID for 10 Days, #20 CAP Prov:ECHO JARRETT NP 10/30/24 Nriyxwum-Ndaipg-Ayvdbljc (MAXITROL 0.1% OPTHALMIC SUSPENSION) [address], 1 DROP OP BID for 5 Days, #5 DROP Prov:AURORA DOE MD 10/21/24 Bacitracin Zinc (Bacitracin) 500 Unit/Gm Oin, 500 UNIT EX TID for 5 Days, #15 OIN Prov:AURORA DOE MD 10/21/24 Qzaibdbg-Akomtk-Qgfsukpa (Maxitrol) 0.1 % Sue, 1 DROP RIGHTEYE QID for 5 Days, #5 ML Prov:AURORA DOE MD 10/21/24 Promethazine-Dm (Promethazine Dm 6.25-15 mg/5Ml) 1 Lucrecia Lucrecia, 5 ML PO TID for 10 Days, #150 ML 0 Refills Prov:ECHO JARRETT [place] 07/04/24 Benzonatate (Benzonatate) 100 Mg Cap, 1 CAP PO TID for 10 Days, #30 CAP 0 Refills Prov:ECHO JARRETT [place] 07/04/24 Amoxicillin & Pot Clavulanate (AUGMENTIN TABLET) 875 Mg Tb, 875 MG PO BID for 7 Days, #14 TAB 0 Refills Prov:ECHO JARRETT [place] 07/04/24 Naproxen (Naproxen) 500 Mg Tab, 500 MG PO BIDWM for 10 Days, #20 TAB 0 Refills Prov:ECHO JARRETT [place] 07/04/24 Tramadol HCl (Tramadol HCl) 50 Mg Tab, 50 MG PO TID, #21 TAB Prov:KEITH BURGESS PA 06/07/24 Cephalexin Monohydrate (Cephalexin) 500 Mg Cap, 1 CAP PO QID, #28 CAP Prov:KEITH BURGESS 06/07/24 Sulfamethoxazole W/Trimethopri (Bactrim Ds Tablet) 1 Tab Tb, 1 TAB PO BID, #20 TAB Prov:KEITH BURGESS 06/07/24 Cephalexin Monohydrate (Cephalexin) 500 Mg Cap, 1 CAP PO QID for 5 Days, #20 CAP 0 Refills Prov:ECHO JARRETT [place] 02/20/24 Hydrocortone (Hydrocortisone 2.5%) 1 Applic Ap, 1 APPLIC TOP BID for 5 Days, #60 GRAMS 0 Refills Prov:ECHO JARRETT [place] 02/12/24 Lidocaine (LIDODERM 5% TOPICAL PATCH) 1 Patch Ph, 1 PATCH TOP DAILY for 30 Days, #30 PATCH 0 Refills Prov:NATHAN JARRETTO Vickey [place] 11/28/23 Methocarbamol (Methocarbamol) 500 Mg Tab, 500 MG PO QIDP for 14 Days, #56 TAB 0 Refills Prov:NATHAN JARRETTO Vickey [place] 11/28/23 Cyclobenzaprine Hcl (Cyclobenzaprine Hcl) 5 Mg Tab, 1 TAB PO QHSP PRN for 10 Days, #10 TAB 0 Refills Prov:NATHAN JARRETTO Vickey GEAR GENERATOR SET UP OPERATOR 08/09/23 Tramadol Hcl (Tramadol Hcl) 50 Mg Tab, 50 MG PO Q8HP PRN for 7 Days, #21 TAB 0 Refills Prov:ECHO JARRETT GEAR GENERATOR SET UP OPERATOR 08/09/23 Ibuprofen Micronized (Ibuprofen) 800 Mg Tab, 800 MG PO TID PRN, #60 TAB Prov:SHAHRAM BUSTILLOS [employer] SET[employer] 07/06/23 Sulfamethoxazole W/Trimethopri (Bactrim Ds Tablet) 1 Tab Tb, 1 TAB PO BID for 10 Days, #20 TAB Prov:SHAHRAM BUSTILLOS [employer] 07/06/23 Ibuprofen Micronized (Ibuprofen) 600 Mg Tab, 600 MG PO Q6HPRN PRN for 5 Days, #20 TAB Prov:ELLIOTT GALICIA [employer] 07/03/23 Sulfamethoxazole W/Trimethopri (Bactrim Ds Tablet) 1 Tab Tb, 1 TAB PO BID for 10 Days, #20 TAB Prov:ELLIOTT GALICIA A [employer] 07/03/23 Ibuprofen Micronized (MOTRIN TABLET) 600 Mg Tb, 600 MG PO TID, #40 TAB *Black box warning-NSAIDS can increase risk of GA & hypertension, GI irritation, ulceration, bleed, perferation. Do not use post cardiac surgery. Use short duration/lowest effective dose. Prov:ELLIOTT GALICIA [employer] 07/03/23 Sulfamethoxazole W/Trimethopri (Bactrim Ds Tablet) 1 Tab Tb, 1 TAB PO BID for 7 Days, #14 TAB Prov:ELLIOTT GALICIA [employer] 07/03/23 Promethazine-Dm (Promethazine Dm 6.25-15 mg/5Ml) 1 Lucrecia Lucrecia, 5 ML PO TID for 10 Days, #150 ML 0 Refills Prov:ECHO JARRETT GEAR GENERATOR SET UP OPERATOR 04/18/23 Benzonatate (Benzonatate) 100 Mg Cap, 100 MG PO TID for 10 Days, #30 CAP 0 Refills Prov:ECHO JARRETT GEAR GENERATOR SET UP OPERATOR 04/18/23 Amoxicillin & Pot Clavulanate (AUGMENTIN TABLET) 875 Mg Tb, 875 MG PO BID for 10 Days, #20 TAB 0 Refills Prov:ECHO JARRETT GEAR GENERATOR SET UP OPERATOR 04/18/23 Acetaminophen (Tylenol 8 Hour Arthritis) 650 Mg Tab, 650 MG PO TID, #30 TAB Prov:KEITH BURGESS 03/31/23 Cephalexin Monohydrate (Cephalexin) 500 Mg Cap, 1 CAP PO QID, #40 CAP Prov:KEITH BURGESS 01/29/23 Sulfamethoxazole W/Trimethopri (Bactrim Ds Tablet) 1 Tab Tb, 1 TAB PO BID for 10 Days, #20 TAB Prov:KEITH BURGESS 01/29/23 Acetaminophen (Tylenol) 325 Mg Cap, 325 MG PO Q4HPRN PRN, #30 CAP 0 Refills Take 1-2 caps po q4h prn for pain. (Do not exceed 3,000mg of acetaminophen in 24 hours) Prov:LOGAN PHILLIPS [facility] 08/18/22 Ibuprofen Micronized (Ibuprofen) 800 Mg Tab, 800 MG PO TID PRN, #30 TAB Prov:SHAHRAM BUSTILLOS 03/16/22 Azithromycin (Zithromax Z-Scott) 250 Mg Tab, 250 MG PO DAILY for 5 Days, #6 TAB Prov:SHAHRAM BUSTILLOS [facility] 03/16/22 Promethazine-Dm (Promethazine Dm 6.25-15 mg/5Ml) 1 Lucrecia Lucrecia, 5 ML PO TID PRN, #240 ML Prov:SHAHRAM BUSTILLOSP 03/16/22 Montelukast Sodium (Singulair) 5 Mg Chw, 1 TAB PO DAILY, #30 TAB 5 Refills Prov:SHAHRAM BUSTILLOS [facility] 03/16/22 Clindamycin Hcl (Clindamycin Hcl) 300 Mg Cap, 300 MG PO TID for 7 Days, #21 CAP Prov:NAE DINERO MD 11/29/21 Cephalexin (KEFLEX 500) 500 Mg Cap, 1 CAP PO TID for 7 Days, #21 CAP Prov:NAE DINERO MD 11/29/21 Methylprednisolone (Medrol Dosepak) 4 Mg Scott, 4 MG PO UD, #21 TAB UAD Prov:KEITH BURGESS 11/06/21 Hydroxyzine Pamoate (Vistaril) 25 Mg Cap, 1 CAP PO TID, #30 CAP 2 Refills Prov:KEITH BURGESS 11/06/21 Reported Medications Wkiktwmcizh-Dweercbjbjjqt-Dgsk (Biktarvy 50-200-25 mg) 1 Tab Tab, 1 TAB PO DAILY 09/08/22 Atorvastatin Calcium (ATORVASTATIN CALCIUM) 40 Mg Tab, 1 TAB PO DAILY 09/08/22 Lisinopril (Lisinopril) 5 Mg Tab, 1 TAB PO DAILY 09/08/22 Glipizide (Glipizide) 5 Mg Tab, 1 TAB PO BID, #60 TAB 3 Refills 04/17/15 Past Medical History PAST MEDICAL HISTORY: CVA, DM, HIV, HTN, Seizures Surgical History: Denies all surgeries Family History Family History: Reviewed,noncontributory to illness Family History (Other): Diverticulitis Social History Smoker: Non-Smoker Alcohol: Occasionally Drugs: Denies Drug Use Lives In: Home All Other Systems: Reviewed and Negative (PER HPI) Physical Exam General Appearance: No Apparent Distress, Normal HEENT: Normal ENT Inspection, Pharynx Normal, TMs Normal Neck: Full Range of Motion, Non-Tender, Normal, Normal Inspection Respiratory: Chest Non-Tender, Lungs Clear, No Accessory Muscle Use, No Respiratory Distress, Normal Breath Sounds Cardiovascular: No Edema, No JVD, No Murmur, No Gallop, Normal Peripheral Pulses, Regular Rate/Rhythm Breast Exam: Deferred Gastrointestinal: No Organomegaly, Non Tender, No Pulsatile Mass, Normal Bowel Sounds, Soft Genitalia: Deferred Pelvic: Deferred Rectal: Deferred Extremities: No calf tenderness, Normal capillary refill, Normal inspection, Normal range of motion, Non-tender, No pedal edema Musculoskeletal : Apperance: Normal Neurologic: Alert, automation qtp tester II-XII nml as Tested, No Motor Deficits, Normal Affect, Normal Mood, No Sensory Deficits Cerebellar Function: Normal Reflexes: Normal Skin: Dry, Normal Color, Warm Lymphatic: No Adenopathy Was a procedure done? Was a procedure done?: No Differential Diagnosis (INTG) Differential Diagnosis: Abrasion, Cellulitis, Hematoma, Insect Envenomation, Puncture Wound, Other X-Ray, Labs, Meds, VS Vital Signs Date Time Temp Pulse Resp B/P (MAP) Pulse Ox O2 Delivery O2 Flow Rate FiO2 10/30/24 07:00 98.1 79 18 156/105 (122) 98 98.1 10/30/24 07:00 79 98 Room Air* 0 21 10/30/24 06:54 98.1 79 18 156/105 (122) 98 98.1 X-Ray, Labs, Meds, VS Comment Patient likely with local inflammatory response at home from possible insect bite/sting. No evidence of systemic reaction such as shortness of breath, diffuse rash, drooling, facial/lip swelling. Doubtful for cellulitis given no fever, minimal erythema, minimal warmth. However, will give hand-written prescription for ABx in case symptoms worsen. Patient remains with minimal symptoms. Remains hemodynamically stable. Thought safe for discharge home. Motrin at home for pain. Benadryl for itchiness. Hydrocortisone for itchiness. Ice/cold compress for comfort. Follow-up with primary care doctor in 2-3 days. Return to ER as needed. Patient is stable for discharge at this time. External notes reviewed. Test results and diagnostic imaging interpreted. All diagnostic findings, discharge care, education and instructions provided Follow-up with PCP in 2 to 3 days Patient verbalized understanding and agreed to treatment plan Vital signs stable, afebrile, no acute distress noted Patient ambulatory with strong steady gait Advised to return precautions for any new or worsening symptoms, return to ER immediately for re-evaluation Patient is aware that the purpose of this visit was for an acute medical emergency requiring emergent stabilization. Chronic conditions, including malignancies have not been ruled out. Patient is instructed to follow up with PCP as directed and discharge instructions for continued care and workup. If unable to arrange follow-up, patient is to return to the emergency department for reassessment. Patient (parent or legal guardian if applicable) was given verbal and written discharge instructions and acknowledges understanding. Time of 1ST Reevaluation: 06:56 Reevaluation 1ST: Improved Patient Education/Counseling: Diagnosis, Treatment Family Education/Counseling: Diagnosis, Treatment SEPSIS Sepsis Screen Vital Signs Date Time Temp Pulse Resp B/P (MAP) Pulse Ox O2 Delivery O2 Flow Rate FiO2 10/30/24 07:00 98.1 79 18 156/105 (122) 98 98.1 10/30/24 07:00 79 98 Room Air* 0 21 10/30/24 06:54 98.1 79 18 156/105 (122) 98 98.1 Departure 1 Departure Time of Disposition: 07:02 Impression: Primary Impression: Insect bite Qualified Codes: S00.261S - Insect bite (nonvenomous) of right eyelid and periocular area, sequela; W57.XXXS - Bitten or stung by nonvenomous insect and other nonvenomous arthropods, sequela Disposition: 01 HOME / SELF CARE / HOMELESS Condition: Stable e-Prescriptions Naproxen (Naproxen) 375 Mg Tab 1 TAB PO BIDPC for 10 Days, #20 TAB 0 Refills Prov: ECHO JARRETT NP 10/30/24 Cefdinir (Cefdinir) 300 Mg Cap 1 CAP PO BID for 10 Days, #20 CAP Prov: ECHO JARRETT GEAR GENERATOR SET UP OPERATOR 10/30/24 Discharged With: Self Critical Care Note Critical Care Time?: No Stability Stability form required: No Heart Score Heart Score: Heart Score Response (Comments) Value History N/A 0 EKG N/A 0 Age N/A 0 Risk Factors N/A 0 Troponin N/A 0 Total 0 ECHO JARRETT NP Oct 30, 2024 07:02
== END 2024-10-30 07:03 | disposition home or self-care (01) ==
LOC: ER 06:29
DX: S00.2 Other and unspecified superficial injuries of eyelid and periocular area (principal); E11.9 Type 2 diabetes mellitus without complications; Z79.84 Long term (current) use of oral hypoglycemic drugs; Z79.899 Other long term (current) drug therapy; Z86.73 Personal history of transient ischemic attack (TIA), and cerebral infarction without residual deficits; I10 Essential (primary) hypertension; W57.XXXD Bitten or stung by nonvenomous insect and other nonvenomous arthropods, subsequent encounter

== ENCOUNTER 2024-12-26 19:05 | Emergency (ER) | payer OTHER ==
[~2024-12-26] VITALS: Ht 160 cm; Wt 77.3 kg
[~2024-12-26 19:05] MED LIST changes: +NAPR-957 PO
--- NOTE | 2024-12-26 19:13 | ECG ---
[facility] Test Date: 2024-12-26 Test Time: 19:06:52 Pat Name: NEGRITA SANTOS Department: Room: Gender: M Electrical Instrument Repairer: LEISE : 1980 Requested By: BALTA POST Order Number: [id number] Reading MD: Margarito Starks Measurements Intervals [place] Rate: 79 P: 40 MD: 148 QRS: 4 QRSD: 104 T: -6 QT: 364 QTc: 418 Interpretive Statements Sinus rhythm Left ventricular hypertrophy Borderline T abnormalities, inferior leads Electronically Signed On 12-27-2024 13:12:10 PDT by Margarito Starks Please click the below link to view image of tracing.
[2024-12-26 19:21] VITALS: BP 174/125; PULSE 75; RESP 15; TEMP 98.6; O2SAT 99
== END 2024-12-27 00:45 | disposition left against medical advice (07) ==
LOC: EDBD 19:05 → ER 19:08
DX: R06.02 Shortness of breath (principal); Z53.21 Procedure and treatment not carried out due to patient leaving prior to being seen by health care provider
CPT/HCPCS: 93005

== ENCOUNTER 2025-03-26 17:52 | Emergency (ER) | payer OTHER ==
[~2025-03-26] VITALS: Ht 167.6 cm; Wt 91.6 kg
--- NOTE | 2025-03-26 19:08 | ED.PDOC ---
History of Present Illness HPI Comments 44-year-old male presents to the ER with prior medical history of asthma, hypertension, diabetes, HIV: Surgical history of gastric bypass and a chief complaint of generalized weakness. Patient reports on having had generalized weakness associated with cough, body aches, headaches and chills since last nigh t. Denies any other symptoms at this time. Denies fever, N/V/D, SOB, CP. No other associated symptoms, modifiers, recent injuries or sick contacts present at this time. Chief Complaint: General Weakness Time Seen by MD: 18:30 Primary Care Provider: DR OLIVAREZ Reviewed Notes: Nurses Notes, Medications, Allergies Allergies: Coded Allergies: NO KNOWN ALLERGIES (Unverified , 01/04/15) Home Meds Active Scripts Naproxen (Naproxen) 375 Mg Tab, 1 TAB PO BIDPC for 10 Days, #20 TAB 0 Refills Prov:ECHO JARRETT NP 10/30/24 Cefdinir (Cefdinir) 300 Mg Cap, 1 CAP PO BID for 10 Days, #20 CAP Prov:ECHO JARRETT NP 10/30/24 Ndaghjda-Jyktjf-Prlhrrsi (MAXITROL 0.1% OPTHALMIC SUSPENSION) [address], 1 DROP OP BID for 5 Days, #5 DROP Prov:AURORA DOE MD 10/21/24 Bacitracin Zinc (Bacitracin) 500 Unit/Gm Oin, 500 UNIT EX TID for 5 Days, #15 OIN Prov:AURORA DOE MD 10/21/24 Jpnuuxba-Guaois-Ewnongkc (Maxitrol) 0.1 % Sue, 1 DROP RIGHTEYE QID for 5 Days, #5 ML Prov:AURORA DOE MD 10/21/24 Promethazine-Dm (Promethazine Dm 6.25-15 mg/5Ml) 1 Lucrecia Lucrecia, 5 ML PO TID for 10 Days, #150 ML 0 Refills Prov:ECHO JARRETT NP 07/04/24 Benzonatate (Benzonatate) 100 Mg Cap, 1 CAP PO TID for 10 Days, #30 CAP 0 Refills Prov:ECHO JARRETT NP 07/04/24 Amoxicillin & Pot Clavulanate (AUGMENTIN TABLET) 875 Mg Tb, 875 MG PO BID for 7 Days, #14 TAB 0 Refills Prov:ECHO JARRETT MALARIOLOGIST 07/04/24 Naproxen (Naproxen) 500 Mg Tab, 500 MG PO BIDWM for 10 Days, #20 TAB 0 Refills Prov:ECHO JARRETT MALARIOLOGIST 07/04/24 Tramadol HCl (Tramadol HCl) 50 Mg Tab, 50 MG PO TID, #21 TAB Prov:KEITH BURGESS PA 06/07/24 Cephalexin Monohydrate (Cephalexin) 500 Mg Cap, 1 CAP PO QID, #28 CAP Prov:KEITH BURGESS PA 06/07/24 Sulfamethoxazole W/Trimethopri (Bactrim Ds Tablet) 1 Tab Tb, 1 TAB PO BID, #20 TAB Prov:KEITH BURGESS PA 06/07/24 Cephalexin Monohydrate (Cephalexin) 500 Mg Cap, 1 CAP PO QID for 5 Days, #20 CAP 0 Refills Prov:ECHO JARRETT MALARIOLOGIST 02/20/24 Hydrocortone (Hydrocortisone 2.5%) 1 Applic Ap, 1 APPLIC TOP BID for 5 Days, #60 GRAMS 0 Refills Prov:ECHO JARRETT MALARIOLOGIST 02/12/24 Lidocaine (LIDODERM 5% TOPICAL PATCH) 1 Patch Ph, 1 PATCH TOP DAILY for 30 Days, #30 PATCH 0 Refills Prov:ECHO JARRETT MALARIOLOGIST 11/28/23 Methocarbamol (Methocarbamol) 500 Mg Tab, 500 MG PO QIDP for 14 Days, #56 TAB 0 Refills Prov:ECHO JARRETT MALARIOLOGIST 11/28/23 Cyclobenzaprine Hcl (Cyclobenzaprine Hcl) 5 Mg Tab, 1 TAB PO QHSP PRN for 10 Days, #10 TAB 0 Refills Prov:ECHO JARRETT MALARIOLOGIST 08/09/23 Tramadol Hcl (Tramadol Hcl) 50 Mg Tab, 50 MG PO Q8HP PRN for 7 Days, #21 TAB 0 Refills Prov:ECHO JARRETT MALARIOLOGIST 08/09/23 Ibuprofen Micronized (Ibuprofen) 800 Mg Tab, 800 MG PO TID PRN, #60 TAB Prov:SHAHRAM RIZO 07/06/23 Sulfamethoxazole W/Trimethopri (Bactrim Ds Tablet) 1 Tab Tb, 1 TAB PO BID for 10 Days, #20 TAB Prov:SHAHRAM RIZOP 07/06/23 Ibuprofen Micronized (Ibuprofen) 600 Mg Tab, 600 MG PO Q6HPRN PRN for 5 Days, #20 TAB Prov:FRIDAELLIOTT Brooke AUTOMATIC EDGER 07/03/23 Sulfamethoxazole W/Trimethopri (Bactrim Ds Tablet) 1 Tab Tb, 1 TAB PO BID for 10 Days, #20 TAB Prov:ELLIOTT GALICIA AUTOMATIC EDGER 07/03/23 Ibuprofen Micronized (MOTRIN TABLET) 600 Mg Tb, 600 MG PO TID, #40 TAB *Black box warning-NSAIDS can increase risk of NV & hypertension, GI irritation, ulceration, bleed, perferation. Do not use post cardiac surgery. Use short duration/lowest effective dose. Prov:FRIDAELLIOTT Brooke AUTOMATIC EDGER 07/03/23 Sulfamethoxazole W/Trimethopri (Bactrim Ds Tablet) 1 Tab Tb, 1 TAB PO BID for 7 Days, #14 TAB Prov:FRIDAELLIOTT John AUTOMATIC EDGER 07/03/23 Promethazine-Dm (Promethazine Dm 6.25-15 mg/5Ml) 1 Lucrecia Lucrecia, 5 ML PO TID for 10 Days, #150 ML 0 Refills Prov:ECHO JARRETT MALARIOLOGIST 04/18/23 Benzonatate (Benzonatate) 100 Mg Cap, 100 MG PO TID for 10 Days, #30 CAP 0 Refills Prov:ECHO JARRETT MALARIOLOGIST 04/18/23 Amoxicillin & Pot Clavulanate (AUGMENTIN TABLET) 875 Mg Tb, 875 MG PO BID for 10 Days, #20 TAB 0 Refills Prov:ECHO JARRETT NP 04/18/23 Acetaminophen (Tylenol 8 Hour Arthritis) 650 Mg Tab, 650 MG PO TID, #30 TAB Prov:KEITH BURGESS 03/31/23 Cephalexin Monohydrate (Cephalexin) 500 Mg Cap, 1 CAP PO QID, #40 CAP Prov:KEITH BURGESS 01/29/23 Sulfamethoxazole W/Trimethopri (Bactrim Ds Tablet) 1 Tab Tb, 1 TAB PO BID for 10 Days, #20 TAB Prov:KEITH BURGESS 01/29/23 Acetaminophen (Tylenol) 325 Mg Cap, 325 MG PO Q4HPRN PRN, #30 CAP 0 Refills Take 1-2 caps po q4h prn for pain. (Do not exceed 3,000mg of acetaminophen in 24 hours) Prov:PHILLIPSLOGAN M AUTOMATIC EDGER 08/18/22 Ibuprofen Micronized (Ibuprofen) 800 Mg Tab, 800 MG PO TID PRN, #30 TAB Prov:SHAHRAM RIZO [facility] 03/16/22 Azithromycin (Zithromax Z-Scott) 250 Mg Tab, 250 MG PO DAILY for 5 Days, #6 TAB Prov:SHAHRAM RIZO [facility] 03/16/22 Promethazine-Dm (Promethazine Dm 6.25-15 mg/5Ml) 1 Lucrecia Lucrecia, 5 ML PO TID PRN, #240 ML Prov:SHAHRAM RIZO [facility] 03/16/22 Montelukast Sodium (Singulair) 5 Mg Chw, 1 TAB PO DAILY, #30 TAB 5 Refills Prov:SHAHRAM RIZO [facility] 03/16/22 Clindamycin Hcl (Clindamycin Hcl) 300 Mg Cap, 300 MG PO TID for 7 Days, #21 CAP Prov:NAE DINERO MD 11/29/21 Cephalexin (KEFLEX 500) 500 Mg Cap, 1 CAP PO TID for 7 Days, #21 CAP Prov:NAE DINERO MD 11/29/21 Methylprednisolone (Medrol Dosepak) 4 Mg Scott, 4 MG PO UD, #21 TAB UAD Prov:KEITH BURGESS 11/06/21 Hydroxyzine Pamoate (Vistaril) 25 Mg Cap, 1 CAP PO TID, #30 CAP 2 Refills Prov:KEITH BURGESS 11/06/21 Reported Medications Oglibvdaixn-Dggmtixpwmrhm-Uhtz (Biktarvy 50-200-25 mg) 1 Tab Tab, 1 TAB PO DAILY 09/08/22 Atorvastatin Calcium (ATORVASTATIN CALCIUM) 40 Mg Tab, 1 TAB PO DAILY 09/08/22 Lisinopril (Lisinopril) 5 Mg Tab, 1 TAB PO DAILY 09/08/22 Glipizide (Glipizide) 5 Mg Tab, 1 TAB PO BID, #60 TAB 3 Refills 04/17/15 Information Source: Patient Mode of Arrival: Ambulatory Severity: Moderate Timing: Hours Duration: Since onset, Hours Prehospital treatment: None Past Medical History PAST MEDICAL HISTORY: CVA, DM, HIV, HTN, Seizures Surgical History: Denies all surgeries Family History Family History: Reviewed,noncontributory to illness, Unknown Family History (Other): Diverticulitis Social History Smoker: Non-Smoker Alcohol: Occasionally Drugs: Denies Drug Use Lives In: Home Constitutional: denies: chills, diaphoresis, fatigue, fever, malaise, sweats, weakness, others EENTM: denies: blurred vision, double vision, ear bleeding, ear discharge, ear drainage, ear pain, ear ringing, eye pain, eye redness, hearing loss, mouth pain, mouth swelling, nasal discharge, nose bleeding, nose congestion, nose pain, photophobia, tearing, throat pain, throat swelling, voice changes, others Respiratory: denies: cough, hemoptysis, orthopnea, SOB at rest, shortness of breath, SOB with excertion, stridor, wheezing, others Cardiovascular: denies: chest pain, dizzy spells, diaphoresis, Dyspnea on exertion, edema, irregular heart beat, left arm pain, lightheadedness, palpitations, PND, syncope, others Gastrointestinal: denies: abdomen distended, abdominal pain, blood streaked bowels, constipated, diarrhea, dysphagia, difficulty swallowing, hematemesis, melena, nausea, poor appetite, poor fluid intake, rectal bleeding, rectal pain, vomiting, others Genitourinary: denies: burning, dysuria, flank pain, frequency, hematuria, incontinence, penile discharge, penile sore, pain, testicle pain, testicle swelling, urgency, others Neurological: denies: dizziness, fainting, headache, left sided numbness, left sided weakness, numbness, paresthesia, pre-existing deficit, right sided numbness, right sided weakness, seizure, speech problems, tingling, tremors, weakness, others Musculoskeletal: denies: back pain, gout, joint pain, joint swelling, muscle pain, muscle stiffness, neck pain, others Integumetry: denies: bruises, change in color, change in hair/nails, dryness, laceration, lesions, lumps, rash, wounds, others Allergic/Immunocompromised: denies: Difficulty Healing, Frequent Infections, Hives, Itching, others Hematologic/Lymphatic: denies: anemia, blood clots, easy bleeding, easy bruising, swollen glands, others Endocrine: denies: excessive hunger, excessive sweating, excessive thirst, excessive urination, flushing, intolerance to cold, intolerance to heat, unexplained weight gain, unexplained weight loss, others Psychiatric: denies: anxiety, bipolar disorder, depression, hopeless, panic disorder, schizophrenia, sleepless, suicidal, others All Other Systems: Reviewed and Negative Physical Exam General Appearance: No Apparent Distress HEENT: Normal ENT Inspection, Pharynx Normal, TMs Normal Neck: Full Range of Motion, Non-Tender, Normal, Normal Inspection Respiratory: Chest Non-Tender, Lungs Clear, No Accessory Muscle Use, No Respiratory Distress, Normal Breath Sounds Cardiovascular: No Edema, No JVD, No Murmur, No Gallop, Normal Peripheral Pulses, Regular Rate/Rhythm Breast Exam: Deferred Gastrointestinal: No Organomegaly, Non Tender, No Pulsatile Mass, Normal Bowel Sounds, Soft Genitalia: Deferred Pelvic: Deferred Rectal: Deferred Extremities: No calf tenderness, Normal capillary refill, Normal inspection, Normal range of motion, Non-tender, No pedal edema Musculoskeletal : Apperance: Normal Neurologic: Alert, director process engineering II-XII nml as Tested, No Motor Deficits, Normal Affect, Normal Mood, No Sensory Deficits Cerebellar Function: Normal Reflexes: Normal Skin: Dry, Normal Color, Warm Lymphatic: No Adenopathy Was a procedure done? Was a procedure done?: No Differential Dx Considerations may include: Hypertensive urgency, viral syndrome, COVID-19 X-Ray, Labs, Meds, VS Vital Signs Date Time Temp Pulse Resp B/P (MAP) Pulse Ox O2 Delivery O2 Flow Rate FiO2 03/26/25 20:13 99.5 88 16 164/101 (122) 98 99.5 03/26/25 17:57 97.9 94 18 169/112 97 97.9 Lab Test 03/26/25 19:59 Range/Units SARS-CoV-2 Antigen (Rapid) Negative NEGATIVE IMPRESSION: No acute cardiopulmonary disease. The COVID test is negative The patient's vital signs remained stable accept the patient is slightly hypertensive The patient was given clonidine 0.1 mg by mouth prior to being discharged The patient will follow up with the primary care doctor Images Reviewed?: Images reviewed and evaluated by me Time of 1ST Reevaluation: 19:04 Reevaluation 1ST: Unchanged Patient Education/Counseling: Diagnosis, Treatment, Prognosis, Need For Follow Up Family Education/Counseling: No Family Present SEPSIS Sepsis Screen Date sepsis recognized/suspect: Mar 26, 2025 Time Sepsis recognized/suspect: 1801 Recent Procedure: No On Antibiotic Therapy: No Respiratory Rate >20: No Heart Rate >90: Yes Temp<36 C (96.8 F) or >38.3 C: No SBP <90 or MAP <65 mmHG: No New Acute Mental Status Change: No Is the patient on CPAP, BIPAP,: No Physician Orders Chest Two Views Routine (03/26/25 18:51) Vital Signs Date Time Temp Pulse Resp B/P (MAP) Pulse Ox O2 Delivery O2 Flow Rate FiO2 03/26/25 20:13 99.5 88 16 164/101 (122) 98 99.5 03/26/25 17:57 97.9 94 18 169/112 97 97.9 Departure 1 Departure Time of Disposition: 20:55 Impression: Primary Impression: Viral syndrome Additional Impression: Hypertensive urgency Disposition: 01 HOME / SELF CARE / HOMELESS Condition: Fair Discharged With: Self Critical Care Note Critical Care Time?: No Stability Stability form required: No Heart Score Heart Score: Heart Score Response (Comments) Value History N/A 0 EKG N/A 0 Age N/A 0 Risk Factors N/A 0 Troponin N/A 0 Total 0 I personally scribed for KATINA HARRIS MD ([email or web address]) on 03/26/25 at 19:08. Electronically submitted by Romeo Foote ([email or web address]). I personally scribed for KATINA HARRIS MD ([email or web address]) on 03/26/25 at 19:30. Electronically submitted by Romeo Foote ([email or web address]). I personally scribed for KATINA HARRIS MD ([email or web address]) on 03/26/25 at 19:30. Electronically submitted by Romeo Foote ([email or web address]). KATINA HARRIS MD Mar 26, 2025 19:08
--- NOTE | 2025-03-26 19:22 | DVH ---
XY CHEST TWO VIEWS ROUTINE CLINICAL HISTORY: cough weakness COMPARISON: XY CHEST TWO VIEWS ROUTINE on DOS: 07/04/24, CHEST TWO VIEWS ROUTINE on DOS: 03/06/20 TECHNIQUE: Frontal and lateral view of the chest was obtained FINDINGS: Lines and Tubes: None Lungs: No focal consolidation. Pleura: No effusion. No pneumothorax. Cardiomediastinal contours: Unremarkable Bones: No acute osseous abnormality. IMPRESSION: No acute cardiopulmonary disease.
[2025-03-26 20:20] VITALS: PULSE 103; O2SAT 99
[2025-03-26 20:49] LABS: COVID19 ANTIGEN SOFIA FIA NEGATIVE (NEGATIVE)
[2025-03-26 21:54] VITALS: BP 169/118; PULSE 91; RESP 18; TEMP 100.2; O2SAT 100
[2025-03-26] MEDS: HYDROcodone-ACET 10/325MG TAB PO ONE (22:23)
== END 2025-03-26 23:00 | disposition home or self-care (01) ==
LOC: ER 17:58
DX: B34.9 Viral infection, unspecified (principal); I16.0 Hypertensive urgency; E11.9 Type 2 diabetes mellitus without complications; I10 Essential (primary) hypertension; J45.909 Unspecified asthma, uncomplicated; Z20.822 Contact with and (suspected) exposure to COVID-19; Z86.73 Personal history of transient ischemic attack (TIA), and cerebral infarction without residual deficits
CPT/HCPCS: 36415; 71046; 87426